=== PATIENT | female | born 1955 | race Caucasian/White ===

== ENCOUNTER 2017-08-15 08:21 | Day surgery (SDC) | payer OTHER ==
[2017-08-10 15:37] VITALS: BMI 22.7
[~2017-08-15 08:21] MED LIST: LACTATED RINGERS 1,000 ML IV SCH; LIDOCAINE 1% 20 ML VIAL (10MG/ML) FOR IV START INTRADERMA PRN
[2017-08-15 09:57] VITALS: RESP 16; TEMP 98.1
[2017-08-15] MEDS ORDERED: LIDOCAINE 1% 20 ML VIAL (10MG/ML) FOR IV START INTRADERMA ONE (10:10)
[2017-08-15] MEDS ORDERED: LIDOCAINE 1% INJ 10MG/ML (20 ML MDV) ONE (10:40)
[2017-08-15] MEDS ORDERED: PROPOFOL 10 MG/ML 20 ML VIAL IV ONE (10:40)
[2017-08-15 11:34] VITALS: BP 101/58; PULSE 67
--- NOTE | 2017-08-20 19:03 | P.PCN ---
Date of Procedure: 08/15/17 Procedure(s) Performed: Procedure: Total colonoscopy. Preoperative diagnosis: Screening for neoplasia. Postoperative diagnosis: Exam within normal limits. Preparation: HalfLytely prep. Sedation: Was provided by anesthesia. Brief clinical history: The patient is a 62-year-old female who is referred for this evaluation for screening for neoplasia age being her risk factor. She has no abdominal complaints, bleeding or anemia. No family history of colon cancer. She has history of breast cancer S/P left lumpectomy. She had no polyps on a prior colonoscopy. Procedure: With the patient on her left lateral decubitus position and after informed consent and adequate sedation, the perianal area was inspected and it did not show any fissures or fistulas. There were no masses felt on digital rectal examination. The Olympus CFQ 160L video colonoscope was then inserted in the rectum in the usual fashion and advanced to the cecum. The mucosa appeared healthy. No polyps or tumors were seen or any obvious diverticular disease or other pathology. I retroflexed the endoscope in the rectum before the endoscope was withdrawn. The patient tolerated the procedure well. Plan: The patient was reassured. She will follow-up with you as planned and I recommended repeat exam in 5 years.
== END 2017-08-15 11:35 | disposition home or self-care (01) ==
LOC: ORWHC2ENDO 08:21
DX: Z12.11 Encounter for screening for malignant neoplasm of colon (principal); F41.9 Anxiety disorder, unspecified; Z85.3 Personal history of malignant neoplasm of breast; Z90.10 Acquired absence of unspecified breast and nipple; Z79.899 Other long term (current) drug therapy
CPT/HCPCS: J2001; J2704; G0121

== ENCOUNTER → 2018-03-30 | Outpatient (CLI) | payer OTHER ==
[2018-03-30 11:49] LABS: Basophils % (A) 1 %; Eosinophils # (A) 0.1 k/uL (0-0.7); Eosinophils % (A) 1 %; HGB 14.1 gm/dL (11.4-16.0); Lymphocytes # (A) 2.2 k/uL (1.0-4.8); Lymphocytes % (A) 33 %; MCH 29.7 pg (25.0-35.0); MCHC 31.3 g/dL (31.0-37.0); Mean Platelet Volume 6.7; Monocytes # (A) 0.3 k/uL (0-1.0); Monocytes % (A) 5 %; Neutrophils # (A) 3.9 k/uL (1.3-7.7); Neutrophils % (A) 57 %; Platelet Count 288 k/uL (150-450); RBC 4.74 m/uL (3.80-5.40); RDW 12.8 % (11.5-15.5); WBC 6.8 k/uL (3.8-10.6)
[2018-03-30 12:03] LABS: Anion Gap 13 mmol/L; Blood Urea Nitrogen 13 mg/dL (7-17); Carbon Dioxide 24 mmol/L (22-30); Chloride 104 mmol/L (98-107); Glucose 84 mg/dL (74-99); Potassium 4.4 mmol/L (3.5-5.1); Sodium 141 mmol/L (137-145)
== END | disposition home or self-care (01) ==
LOC: LABPAT 10:58
PROVIDERS: ATTEND Obstetrics & Gynecology Obstetrics
DX: Z01.818 Encounter for other preprocedural examination (principal); N83.209 Unspecified ovarian cyst, unspecified side; R93.8 Abnormal findings on diagnostic imaging of other specified body structures
CPT/HCPCS: 36415; 80051; 82565; 82947; 84520; 85025; 87086; 93005

== ENCOUNTER 2018-04-09 05:48 | Day surgery (SDC) | payer OTHER ==
[2018-03-30 10:01] VITALS: BMI 22.7
[~2018-04-09 05:48] MED LIST changes: +ACETAMINOPHEN IV (For NPO) 100 ML IVPB ONE; +DEXAMETHASONE SOD PHOSPHATE 10 MG/ML 1 ML VIAL IV ONE; -LACTATED RINGERS 1,000 ML IV SCH; -LIDOCAINE 1% 20 ML VIAL (10MG/ML) FOR IV START INTRADERMA PRN; +ONDANSETRON 4 MG/2 ML VIAL IVP ONE; +ceFAZolin IN SWFI 2 GM/20 ML SYRINGE IVP ONE
[2018-04-09] MEDS: LACTATED RINGERS 1,000 ML IV SCH (06:18)
[2018-04-09] MEDS ORDERED: SCOPOLAMINE 1.5MG/72HR PATCH TRANSDERM ONE (06:44)
[2018-04-09] MEDS ORDERED: LIDOCAINE 1% INJ 10MG/ML (20 ML MDV) ONE (07:36)
[2018-04-09] MEDS ORDERED: ROCURONIUM BROMIDE 10 MG/ML 10 ML VIAL IV ONE (07:36)
[2018-04-09] MEDS ORDERED: fentaNYL (PF) 50 MCG/ML 2 ML AMP ONE (07:36)
[2018-04-09] MEDS ORDERED: GLYCOPYRROLATE 0.2 MG/ML 2 ML VIAL ONE (07:36)
[2018-04-09] MEDS ORDERED: ePHEDrine SULFATE/0.9% NACL/PF 50 MG/5 ML SYRINGE IV ONE (07:36)
[2018-04-09] MEDS ORDERED: NEOSTIGMINE 1 MG/ML 10 ML VIAL ONE (07:36)
[2018-04-09] MEDS ORDERED: PROPOFOL 10 MG/ML 20 ML VIAL IV ONE (07:36)
[2018-04-09] MEDS ORDERED: MIDAZOLAM 2 MG/2 ML VIAL ONE (07:36)
[2018-04-09] MEDS ORDERED: Acetaminophen-Codeine 300-30mg TAB PO PRN (07:43)
[2018-04-09] MEDS ORDERED: ROPIVACAINE 5 MG/ML 30 ML VIAL MISCELLANE ONE ×2 (08:20→09:00)
--- NOTE | 2018-04-09 09:08 | P.OP ---
Date of Procedure: 04/09/18 Preoperative Diagnosis: Postmenopausal bleeding, pelvic mass, ovarian cyst Postoperative Diagnosis: Same Procedure(s) Performed: Robotic-assisted vaginal hysterectomy with bilateral salpingo-oophorectomy, drainage of right ovarian cyst, diagnostic cystoscopy Anesthesia: ANA Surgeon: Lashon Collazo Interior Design Professional #1: Tamie Larios Estimated Blood Loss (ml): 20 IV fluids (ml): 700 Urine output (ml): 300 Pathology: other (Uterus cervix bilateral fallopian tubes and ovaries) Condition: stable Disposition: PACU Indications for Procedure: Large 16 cm simple-appearing cyst Operative Findings: Enlarged simple-appearing ovarian cyst, right Description of Procedure: Patient was seen in the preoperative area and informed consent is reviewed with patient. She is reminded of the risks of surgery including but not limited to infection, bleeding, damage to bladder, bowel, ureteric or other pelvic structure injury. Patient states understanding and wishes to proceed with the surgery. Patient was taken to the operating room where general anesthesia was obtained without difficulty by the anesthesia department. She was then prepped and draped in the normal sterile fashion in the dorsal lithotomy position. A Acevedo catheter was then placed under sterile technique. Weighted speculum was placed in the posterior vaginal vault the anterior lip of the cervix is visualized grasped with a single-tooth tenaculum. Endocervical canal was then dilated to be Uterine macular was advanced into the uterus as a means to manipulate the uterus throughout the procedure. At this time the balloon was insufflated with 10 mL of air endocervical cath was placed snugly against the cervix all instruments were then removed from the patient's vaginal vault. Attention was then turned the patient's abdomen with approximately 2 fingerbreadths above the umbilicus a small skin incision is made this incision a Veress needle is placed. Once the Veress needle was deemed to be in the proper position with a drop of CO2 pressure CO2 insufflation was allowed to occur. 3 L of gas were used to obtain pneumoperitoneum. At this point a 12 mm trocar and sleeve is made in the port is placed under direct visualization. The above noted findings were visualized. At this time the additional ports that the placed in the usual fashion at 10 cm lateral and 3 cm inferior to the midline port these 8 mm operative ports and are placed under direct visualization. In the left upper quadrant a 12 mm trocar and sleeve is placed under direct visualization. At this point the da Malu robot is docked in the usual fashion. The operative arms are placed in the right operative from the monopolar scissors, in the left operative arm the bipolar forceps is placed. At this time the cyst wall is transected in the suction curet is used to drain the cyst of straw-colored fluid. Attention was then turned the patient's left infundibulopelvic ligament which was grasped, coagulated distally and proximally and divided. This continued through the broad ligament toward the round which is coagulated distally and proximally and divided. The bladder flap from the left was then created using sharp and blunt dissection. The ascending branch the uterine artery was visualized regulated distally and proximally and divided. Attention then turned to the patient's right utero- ovarian ligament which was coagulated distally and proximally and divided. This continued through the broad and toward the round ligament which was coagulated distally and proximally and divided. Hemostasis was appreciated. The bladder flap was then created using sharp and blunt dissection. At this time the descending branch of the uterine artery from the right was then visualized regulated distally and proximally divided. A Ray-Yoel was placed into the abdomen and the bladder was dissected further away from the operating field. At this point the only remaining attachment was a vaginal detachment therefore colpotomy incision was made in a circumferential fashion was then delivered through the vaginal opening. The vaginal cuff was inspected and hemostasis was appreciated. The pelvis was then irrigated copiously and the vaginal cuff was closed with multiple [id number] sutures of 0 Vicryl. The robot was then undocked in the usual fashion after the instruments had been removed. The Acevedo catheter was removed and a cystoscopy was performed. The cystoscope was placed into the urethra toward the bladder bladder bubble was noted in both ureteral orifice was noted to be spilling clear yellow urine. The Acevedo catheter was then replaced after the cystoscope was removed. Attention was then turned to the patient's abdomen and skin incisions were closed with 4-0 Vicryl in a subcuticular fashion Steri-Strips and sterile dressings were applied as needed. Patient tolerated procedure well and was taken recovery room awake and in stable condition. All counts were correct 2
[2018-04-09] MEDS: HYDROmorphone 0.5 MG/0.5 ML SYRINGE IVP PRN ×2 (09:42→09:54)
[2018-04-09] MEDS: SENNOSIDES-DOCUSATE SODIUM 1 EACH TAB PO SCH ×2 (14:48→23:10)
[2018-04-09] MEDS: Acetaminophen-Codeine 300-30mg TAB PO PRN (17:06)
[2018-04-09] MEDS: IBUPROFEN 600 MG TAB PO PRN (22:04)
[2018-04-10] MEDS: Acetaminophen-Codeine 300-30mg TAB PO PRN (04:31)
[2018-04-10 06:46] VITALS: RESP 18
[2018-04-10 06:47] VITALS: BP 110/61; PULSE 67; TEMP 97.9
[2018-04-10 07:16] LABS: Basophils # (A) 0.1 k/uL (0-0.2); Basophils % (A) 0 %; Eosinophils # (A) 0.1 k/uL (0-0.7); Eosinophils % (A) 1 %; HCT 38.5 % (34.0-46.0); Lymphocytes # (A) 2.4 k/uL (1.0-4.8); Lymphocytes % (A) 20 %; MCH 31.6 pg (25.0-35.0); MCHC 33.7 g/dL (31.0-37.0); MCV 93.8 fL (80.0-100.0); Mean Platelet Volume 6.5; Monocytes # (A) 0.7 k/uL (0-1.0); Monocytes % (A) 6 %; Neutrophils # (A) 8.4 k/uL (1.3-7.7); Neutrophils % (A) 71 %; Platelet Count 269 k/uL (150-450); RBC 4.11 m/uL (3.80-5.40); WBC 11.8 k/uL (3.8-10.6)
[2018-04-10] MEDS: IBUPROFEN 600 MG TAB PO PRN (07:55)
--- NOTE | 2018-04-10 08:29 | P.DS ---
Providers Date of admission: 04/09/2018 Expected date of discharge: 04/10/18 Attending physician: Lashon Collazo Primary care physician: Stated None - Discharge Diagnosis(es) (1) Pelvic mass in female Current Visit: Yes Status: Acute (2) Ovarian cyst Current Visit: Yes Status: Acute (3) Postmenopausal bleeding Current Visit: Yes Status: Acute Hospital Course: This is a 63-year-old female that presented to the office with complaints of postmenopausal bleeding, ultrasound was obtained and a large 16 cm pelvic mass was visualized. Patient underwent Sonia testing which was negative and decided to undergo robotic-assisted vaginal hysterectomy with bilateral salpingo- oophorectomy. Patient was brought to the operating room surgery was performed without difficulty for further details on the operation please see the operative report. Patient's postoperative course has been uneventful. This morning she is ambulating and voiding without difficulty. She is tolerating a regular diet without nausea or vomiting. She states her pain is well- controlled. She denies vaginal bleeding at this time. She does wish discharge home this morning Patient Condition at Discharge: Good Plan - Discharge Summary Discharge Rx Participant: Yes New Discharge Prescriptions: No Action Zolpidem [Ambien] 10 mg PO HS PRN PRN Reason: SLEEP Risedronate Sodium [Actonel] 35 mg PO WE Citalopram Hydrobromide [CeleXA] 10 mg PO DAILY ALPRAZolam [Xanax] 0.5 mg PO DAILY PRN PRN Reason: Anxiety Triamcinolone Acetonide [Nasacort] 1 spray EA NOSTRIL DAILY Multivitamins, Thera [Multivitamin (formulary)] 1 each PO DAILY Glucosam/Phu-Msm1/C/Haider/Bosw [Glucosamine-Chondroitin Tablet] 1 each PO DAILY Calcium Carbonate/Vitamin D3 [Calcium 500-Vit D3 600 Tablet] 1 each PO DAILY Aspirin [Adult Low Dose Aspirin EC] 81 mg PO DAILY Discharge Medication List ALPRAZolam [Xanax] 0.5 mg PO DAILY PRN 08/10/17 [History] Aspirin [Adult Low Dose Aspirin EC] 81 mg PO DAILY 08/10/17 [History] Calcium Carbonate/Vitamin D3 [Calcium 500-Vit D3 600 Tablet] 1 each PO DAILY [History] Citalopram Hydrobromide [CeleXA] 10 mg PO DAILY 08/10/17 [History] Glucosam/Phu-Msm1/C/Haider/Bosw [Glucosamine-Chondroitin Tablet] 1 each PO DAILY 08/10/17 [History] Multivitamins, Thera [Multivitamin (formulary)] 1 each PO DAILY 08/10/17 [ History] Risedronate Sodium [Actonel] 35 mg PO WE 08/10/17 [History] Triamcinolone Acetonide [Nasacort] 1 spray EA NOSTRIL DAILY 08/10/17 [History] Zolpidem [Ambien] 10 mg PO HS PRN 08/10/17 [History] Follow up Appointment(s)/Referral(s): Lashon Collazo DO [Doctor of Osteopathic Medicine] - 2 Weeks Patient Instructions/Handouts: Laparoscopic Hysterectomy (DC), Laparoscopic Hysterectomy (GEN) Discharge Disposition: HOME SELF-CARE
[2018-04-10] MEDS: SENNOSIDES-DOCUSATE SODIUM 1 EACH TAB PO SCH (11:16)
== END 2018-04-10 10:30 | disposition home or self-care (01) ==
LOC: OR 05:48 → 4FBP 09:17 → OR 04-10 10:30
PROVIDERS: ATTEND Obstetrics & Gynecology Obstetrics
DX: N80.0 Endometriosis of uterus (principal); D25.9 Leiomyoma of uterus, unspecified; D27.0 Benign neoplasm of right ovary; E28.2 Polycystic ovarian syndrome; N84.0 Polyp of corpus uteri; F41.9 Anxiety disorder, unspecified; G47.00 Insomnia, unspecified; M81.0 Age-related osteoporosis without current pathological fracture; Z85.3 Personal history of malignant neoplasm of breast; Z92.21 Personal history of antineoplastic chemotherapy; Z79.82 Long term (current) use of aspirin; Z79.51 Long term (current) use of inhaled steroids; Z79.899 Other long term (current) drug therapy; Z87.891 Personal history of nicotine dependence
CPT/HCPCS: 58552; S2900; 85025; 86850; 86900; 86901; 88309

== ENCOUNTER → 2020-01-23 | Outpatient (CLI) | payer OTHER ==
--- NOTE | 2020-01-23 09:35 | BD ---
EXAMINATION TYPE: Axial Bone Density DATE OF EXAM: 01/23/2020 COMPARISON: NONE CLINICAL HISTORY: 65-year-old female M81.0, age-related osteoporosis without current pathologic fract ure. Height: 66 IN Weight: 146 LBS FRAX RISK QUESTIONS: RISK FACTORS HISTORY OF: Active: YES Postmenopausal woman: AGE 48 Take estrogen and/or progesterone medications: NOT NOW How long: TOOK FROM AGE [age] MEDICATIONS: Osteoporosis Medications: Which medication: Actonel How Lon YEARS Additional Medications: ACTONEL, CALCIUM, VIT D, Additional History: BREAST CANCER WITH CHEMO EXAM MEASUREMENTS: Bone mineral densitometry was performed using the [employer] System. Bone mineral density as measured about the Lumbar spine is: ----- L1-L4(G/cm2): 0.965 T Score Values are as follows: ----- L2: -2.0 ----- L3: -1.7 ----- L4: -1.9 ----- L1-L4: -1.8 Bone mineral density DECREASED -12.5 SINCE 02/19/2003 Bone mineral density about the R hip (g/cm2): 0.841 Bone mineral density about the L hip (g/cm2): 0.831 T Score values are as follows: -----R Neck: -1.4 -----L Neck: -1.5 -----R Total: -1.2 -----L Total: -1.5 Bone mineral density DECREASED -8.5 SINCE 02/19/2003 IMPRESSION: Osteopenia (T Score between -2.5 and -1). There is slightly increased risk of fracture and the patient may be considered for treatment. Re-Screen 2-5 years. NOTE: T-SCORE=SD OF THE YOUNG ADULT MEAN.
== END | disposition home or self-care (01) ==
LOC: RADBDWWP 07:58
PROVIDERS: ATTEND Family Medicine
DX: M85.80 Other specified disorders of bone density and structure, unspecified site (principal)
CPT/HCPCS: 77080

== ENCOUNTER 2024-11-06 13:25 | Inpatient (IN) | payer MEDICARE, BC ==
[2024-11-06] MEDS: ONDANSETRON 4 MG/2 ML VIAL IVP STA (14:24)
[2024-11-06] MEDS: KETOROLAC 15 MG/ML 1 ML VIAL IVP STA (14:24)
[2024-11-06] MEDS: PANTOPRAZOLE 40 MG/10 ML VIAL IVP STA (14:25)
[2024-11-06 14:33] LABS: Basophils # (A) 0.06 10*3/uL (0.00-0.10); Basophils % (A) 0.9 %; Eosinophils # (A) 0.02 10*3/uL (0.04-0.35); Eosinophils % (A) 0.3 %; HCT 44.9 % (37.2-46.3); HGB 15.6 g/dL (12.0-15.0); Lymphocytes # (A) 1.49 10*3/uL (0.90-5.00); Lymphocytes % (A) 23.3 %; MCH 33.6 pg (27.0-32.0); MCHC 34.7 g/dL (32.0-37.0); MCV 96.8 fL (80.0-97.0); Mean Platelet Volume 10.3 fL (9.5-12.2); Monocytes % (A) 15.6 %; Neutrophils # (A) 3.81 10*3/uL (1.80-7.70); Neutrophils % (A) 59.7 %; Platelet Count 249 10*3/uL (140-440); RBC 4.64 10*6/uL (4.10-5.20); RDW 15.2 % (11.5-14.5); WBC 6.39 10*3/uL (4.50-10.00)
[2024-11-06 14:38] LABS: INR 1.1 (<1.2); Partial Thromboplastin Time 23.3 sec (22.0-30.0); Prothrombin Time 11.9 sec (10.0-12.5)
--- NOTE | 2024-11-06 14:42 | ED ---
General Adult HPI - General Source: patient, RN notes reviewed, old records reviewed Mode of arrival: ambulatory Limitations: no limitations <Jose Vizcarra - Last Filed: 11/06/24 14:39> <Ingrid Etienne - Last Filed: 11/07/24 18:57> - General Chief complaint: Abdominal Pain Stated complaint: abd pain Time Seen by Provider: 11/06/24 14:00 - History of Present Illness Initial comments: Patient is a 69-year-old female with past medical history remarkable for breast cancer currently in remission who presents emergency department complaining of abdominal distention and discomfort. Has noticed some decreased stooling and it is atypical for her. States it is somewhat more watery but no change in color. Is still light brown. Endorses mild nausea as well but no emesis. Does have a history of a hysterectomy. No other obvious abdominal surgeries. Symptoms have been progressively worsening over the last 3 weeks. States it feels like a fluid-filled distended abdomen. Denies any chest pain or shortness of breath. Denies any history of alcohol abuse or liver issues. Has no other acute comp laints at this time. Denies fevers or urinary issues. Denies any vaginal discharge or bleeding. Presents for further evaluation. (Jose Vizcarra) - Related Data Home Medications Medication Instructions Recorded Confirmed Calcium Carbonate/Vitamin D3 1 tab PO W/LUNCH 08/10/17 11/06/24 [Calcium 500-Vit D3 15 Mcg (600 Iu)] Glucosam/Phu-Msm1/C/Haider/Bosw 1 tab PO W/LUNCH 08/10/17 11/06/24 [Glucosamine-Chondroitin Tablet] Multivitamins, Thera [Multivitamin 1 tab PO W/LUNCH 08/10/17 11/06/24 (formulary)] Risedronate Sodium [Actonel] 35 mg PO FR 08/10/17 11/06/24 Zolpidem [Ambien] 10 mg PO HS PRN 08/10/17 11/06/24 L.acidoph,Paracasei, B.lactis 1 cap PO W/LUNCH 11/06/24 11/06/24 [Probiotic] Allergies Allergy/AdvReac Type Severity Reaction Status Date / Time No Known Allergies Allergy Verified 11/06/24 16:05 Review of Systems ROS Other: All systems not noted in ROS Statement are negative. <Jose Vizcarra - Last Filed: 11/06/24 14:39> ROS Other: All systems not noted in ROS Statement are negative. <Ingrid Etienne - Last Filed: 11/07/24 18:57> ROS Statement: Those systems with pertinent positive or pertinent negative responses have been documented in the HPI. Review of Systems: CONST: Denies fever EYES: Denies blurry vision ENT: Denies nasal congestion C/V: Denies Chest pain RESP: Denies shortness of breath GI: Endorses abdominal distention/discomfort : Denies dysuria SKIN: Denies rash. MSK: Denies joint pain. NEURO: Denies headache (Jose Vizcarra) Past Medical History Past Medical History: Cancer Additional Past Medical History / Comment(s): BREAST CANCER History of Any Multi-Drug Resistant Organisms: None Reported Past Surgical History: Breast Surgery Additional Past Surgical History / Comment(s): BILAT MASTECTOMY. COLONOSCOPY- LAST ONE 07/2017. LUMPECTOMY LT SIDE. PORT INSERTED AND REMOVED. BILAT CATARACTS Past Anesthesia/Blood Transfusion Reactions: Motion Sickness Past Psychological History: Anxiety Smoking Status: Never smoker Past Alcohol Use History: Rare Past Drug Use History: None Reported - Past Family History Mother Family Medical History: No Reported History Father Family Medical History: Cancer <Jose Vizcarra - Last Filed: 11/06/24 14:39> General Exam Limitations: no limitations <Jose Vizcarra - Last Filed: 11/06/24 14:39> - General Exam Comments Initial Comments: General: Appears in mild discomfort HEAD: Normal with no signs of head trauma. EYES: EOMI ENT: Hearing grossly intact, normal oropharynx. RESPIRATORY: Clear breath sounds bilaterally. No wheezes, rales, or rhonchi. C/V: Regular rate and rhythm. S1 and S2 auscultated, no edema, peripheral pulses 2+ and intact throughout ABD: Abdomen is soft, distended. Nonfocal tenderness to palpation. No peritoneal signs. No rebound tenderness. No guarding. EXT: No obvious deformity SKIN: No rashes or lesions observed on exposed skin. NEURO: Alert and oriented x 4. (Jose Vizcarra) Course Vital Signs 11/06/24 11/06/24 11/06/24 13:35 16:18 19:49 Temperature 97.6 F 97.2 F L 97.8 F Pulse Rate 100 86 99 Respiratory 16 20 18 Rate Blood Pressure 160/85 138/73 143/78 O2 Sat by Pulse 95 97 98 Oximetry Medical Decision Making - Lab Data Result diagrams: 11/06/24 14:21 <Jose Vizcarra - Last Filed: 11/06/24 14:39> - Lab Data Result diagrams: 11/07/24 00:27 11/07/24 00:27 <Ingrid Etienne - Last Filed: 11/07/24 18:57> - Medical Decision Making Was pt. sent in by a medical professional or institution (, PA, RECEIVING DOCK CHECKER, urgent care, hospital, or shelter...) When possible be specific @ -Sent in by PCP Dr. Shannon for evaluation. Did you speak to anyone other than the patient for history (EMS, parent, family, police, friend...)? What history was obtained from this source @ -No Did you review nursing and triage notes (agree or disagree)? Why? @ -I reviewed and agree with nursing and triage notes Were old charts reviewed (outside hosp., previous admission, EMS record, old EKG, old radiological studies, urgent care reports/EKG's, shelter records)? Report findings @ -No old charts were reviewed Differential Diagnosis (chest pain, altered mental status, abdominal pain women, abdominal pain men, vaginal bleeding, weakness, fever, dyspnea, syncope, headache, dizziness, GI bleed, back pain, seizure, CVA, palpatations, mental health, musculoskeletal)? @ -Differential Abdominal Pain Women: Appendicitis, Cholecystitis, diverticulosis, ischemic bowel, pancreatitis, hepatitis, UTI, gastroenteritis, AAA, incarcerated hernia, bowel obstruction, constipation, inflammatory bowel, hepatitis, peptic ulcer disease, splenic infarction, perforated viscus, vulvitis, ovarian torsion, PID, kidney stone, placenta abruption, this is not meant to be an all-inclusive list EKG interpreted by me (3pts min.). @ -None done X-rays interpreted by me (1pt min.). @ -None done CT interpreted by me (1pt min.). @ -Pending U/S interpreted by me (1pt. min.). @ -None done What testing was considered but not performed or refused? (CT, X-rays, U/S, labs)? Why? @ -None What meds were considered but not given or refused? Why? @ -None Did you discuss the management of the patient with other professionals (professionals i.e. Dr., PA, RECEIVING DOCK CHECKER, lab, RT, psych nurse, executive secretary social welfare, press tender short goods, teacher, targeting acquisition officer, disease case manager)? Give summary @ -No Was smoking cessation discussed for >3mins.? @ -No Was critical care preformed (if so, how long)? @ -No Were there social determinants of health that impacted care today? How? (Homelessness, low income, unemployed, alcoholism, drug addiction, transport ation, low edu. Level, literacy, decrease access to med. care, group home, rehab)? @ -No Was there de-escalation of care discussed even if they declined (Discuss DNR or withdrawal of care, Hospice)? DNR status @ -No What co-morbidities impacted this encounter? (DM, HTN, Smoking, COPD, CAD, Cancer, CVA, ARF, Chemo, Hep., AIDS, mental health diagnosis, sleep apnea, morbid obesity)? @ -None Was patient admitted / discharged? Hospital course, mention meds given and route, prescriptions, significant lab abnormalities, going to OR and other pertinent info. @ -Patient presents with 3 weeks of worsening abdominal pain and distention and some decrease stooling over that period of time. Sent in by her PCP. Vitals are within acceptable limits. Patient will be administered IV Zofran as well as Toradol. Considered IV fluids however unknown if this is fluid distention versus constipation or intestinal distention. We will monitor the patient but obtain abdominal workup as well as CT abdomen pelvis. Patient was in agreement this plan. At this time is the end of my shift. [facility], Dr. Etienne pending results of workup. Undiagnosed new problem with uncertain prognosis? @ -No Drug Therapy requiring intensive monitoring for toxicity (Heparin, Nitro, Insulin, Cardizem)? @ -No Were any procedures done? @ -No (Jose Vizcarra) Was patient admitted / discharged? Hospital course, mention meds given and route , prescriptions, significant lab abnormalities, going to OR and other pertinent info. Admission-patient signed out to myself pending completion of labs and imaging. CT was significant for a small left pleural effusion with mild adjacent compressive atelectasis, cirrhotic liver, multiple innumerable hepatic metastic lesions, multiple small scattered sclerotic osseous metastases without pathologic fracture and marked ascites. I did personally review CT scan, I agree with radiologist interpretation, multiple liver lesions noted as well as ascites. I updated patient today's findings and discussed with her concern that, given her history of breast cancer there may be recurrence of cancer. Giv en patient's significant symptoms and imaging findings plan for admission for further evaluation and symptom control. Patient agreeable with plan of care. Case was discussed with Dr. Lazar who kindly excepted patient for admission. Undiagnosed new problem with uncertain prognosis? @ -No Drug Therapy requiring intensive monitoring for toxicity (Heparin, Nitro, Insulin, Cardizem)? @ -No Were any procedures done? @ -No Diagnosis/symptom? @Ascites, abdominal pain, metastatic liver lesions, metastatic osseous lesions Acute, or Chronic, or Acute on Chronic? @Acute Uncomplicated (without systemic symptoms) or Complicated (systemic symptoms)? @Complicated Side effects of treatment? @ -No Exacerbation, Progression, or Severe Exacerbation? @ -No Poses a threat to life or bodily function? How? (Chest pain, USA, CA, pneumonia, PE, COPD, DKA, ARF, appy, cholecystitis, CVA, Diverticulitis, Homicidal, Suicidal, threat to staff... and all critical care pts) @ -Yes (,Ingrid) - Lab Data Lab Results 11/06/24 11/06/24 11/06/24 Range/Units 14:21 14:21 14:21 WBC 6.39 (4.50-10.00) 10*3/uL RBC 4.64 (4.10-5.20) 10*6/uL Hgb 15.6 H (12.0-15.0) g/dL Hct 44.9 (37.2-46.3) % MCV 96.8 (80.0-97.0) fL MCH 33.6 H (27.0-32.0) pg MCHC 34.7 (32.0-37.0) g/dL RDW (11.5-14.5) % Plt Count 249 (140-440) 10*3/uL MPV 10.3 (9.5-12.2) fL Immature Gran % (Auto) 0.2 % Neutrophils % 59.7 % Lymphocytes % 23.3 % Monocytes % 15.6 % Eosinophils % 0.3 % Basophils % 0.9 % Immature Gran # 0.01 (0.00-0.04) 10*3/uL Neutrophils # 3.81 (1.80-7.70) 10*3/uL Lymphocytes # 1.49 (0.90-5.00) 10*3/uL Monocytes # 1.00 (0.20-1.00) 10*3/uL Eosinophils # 0.02 L (0.04-0.35) 10*3/uL Basophils # 0.06 (0.00-0.10) 10*3/uL PT 11.9 (10.0-12.5) sec INR 1.1 (<1.2) APTT 23.3 (22.0-30.0) sec Sodium 134 L (137-145) mmol/L Potassium 4.7 (3.5-5.1) mmol/L Chloride 100 (98-107) mmol/L Carbon Dioxide 23 (22-30) mmol/L Anion Gap 11 mmol/L BUN 12 (7-17) mg/dL Creatinine 0.54 (0.52-1.04) mg/dL Est GFR (CKD-EPI)AfAm >90 (>60 ml/min/1.73 sqM) Est GFR (CKD-EPI)NonAf >90 (>60 ml/min/1.73 sqM) Glucose 89 (74-99) mg/dL Lactic Ac Sepsis Rflx Plasma Lactic Acid Sher (0.7-2.0) mmol/L Calcium 9.6 (8.4-10.2) mg/dL Total Bilirubin 2.5 H (0.2-1.3) mg/dL AST 286 H (14-36) U/L ALT 103 H (4-34) U/L Alkaline Phosphatase 454 H (38-126) U/L Total Protein 7.1 (6.3-8.2) g/dL Albumin 3.9 (3.5-5.0) g/dL Globulin g/dL Albumin/Globulin Ratio Amylase 50 (30-110) U/L Lipase 134 (23-300) U/L Urine Color Urine Appearance (Clear) Urine pH (5.0-8.0) Ur Specific [place] (1.001-1.035) Urine Protein (Negative) Urine Glucose (UA) (Negative) Urine Ketones (Negative) Urine Blood (Negative) Urine Nitrite (Negative) Urine Bilirubin (Negative) Urine Urobilinogen (<2.0) mg/dL Ur Leukocyte Esterase (Negative) 11/06/24 11/06/24 11/06/24 Range/Units 14:21 14:49 16:14 WBC (4.50-10.00) 10*3/uL RBC (4.10-5.20) 10*6/uL Hgb (12.0-15.0) g/dL Hct (37.2-46.3) % MCV (80.0-97.0) fL MCH (27.0-32.0) pg MCHC (32.0-37.0) g/dL RDW (11.5-14.5) % Plt Count (140-440) 10*3/uL MPV (9.5-12.2) fL Immature Gran % (Auto) % Neutrophils % % Lymphocytes % % Monocytes % % Eosinophils % % Basophils % % Immature Gran # (0.00-0.04) 10*3/uL Neutrophils # (1.80-7.70) 10*3/uL Lymphocytes # (0.90-5.00) 10*3/uL Monocytes # (0.20-1.00) 10*3/uL Eosinophils # (0.04-0.35) 10*3/uL Basophils # (0.00-0.10) 10*3/uL PT (10.0-12.5) sec INR (<1.2) APTT (22.0-30.0) sec Sodium (137-145) mmol/L Potassium (3.5-5.1) mmol/L Chloride (98-107) mmol/L Carbon Dioxide (22-30) mmol/L Anion Gap mmol/L BUN (7-17) mg/dL Creatinine (0.52-1.04) mg/dL Est GFR (CKD-EPI)AfAm (>60 ml/min/1.73 sqM) Est GFR (CKD-EPI)NonAf (>60 ml/min/1.73 sqM) Glucose (74-99) mg/dL Lactic Ac Sepsis Rflx Y Plasma Lactic Acid Sher 2.4 H* (0.7-2.0) mmol/L Calcium (8.4-10.2) mg/dL Total Bilirubin (0.2-1.3) mg/dL AST (14-36) U/L ALT (4-34) U/L Alkaline Phosphatase (38-126) U/L Total Protein (6.3-8.2) g/dL Albumin (3.5-5.0) g/dL Globulin g/dL Albumin/Globulin Ratio Amylase (30-110) U/L Lipase (23-300) U/L Urine Color Yellow Urine Appearance Clear (Clear) Urine pH 5.5 (5.0-8.0) Ur Specific [place] 1.033 (1.001-1.035) Urine Protein Negative (Negative) Urine Glucose (UA) Negative (Negative) Urine Ketones 1+ H (Negative) Urine Blood Negative (Negative) Urine Nitrite Negative (Negative) Urine Bilirubin Negative (Negative) Urine Urobilinogen <2.0 (<2.0) mg/dL Ur Leukocyte Esterase Negative (Negative) 11/06/24 11/06/24 11/06/24 Range/Units 18:05 18:35 21:23 WBC (4.50-10.00) 10*3/uL RBC (4.10-5.20) 10*6/uL Hgb (12.0-15.0) g/dL Hct (37.2-46.3) % MCV (80.0-97.0) fL MCH (27.0-32.0) pg MCHC (32.0-37.0) g/dL RDW (11.5-14.5) % Plt Count (140-440) 10*3/uL MPV (9.5-12.2) fL Immature Gran % (Auto) % Neutrophils % % Lymphocytes % % Monocytes % % Eosinophils % % Basophils % % Immature Gran # (0.00-0.04) 10*3/uL Neutrophils # (1.80-7.70) 10*3/uL Lymphocytes # (0.90-5.00) 10*3/uL Monocytes # (0.20-1.00) 10*3/uL Eosinophils # (0.04-0.35) 10*3/uL Basophils # (0.00-0.10) 10*3/uL PT (10.0-12.5) sec INR (<1.2) APTT (22.0-30.0) sec Sodium (137-145) mmol/L Potassium (3.5-5.1) mmol/L Chloride (98-107) mmol/L Carbon Dioxide (22-30) mmol/L Anion Gap mmol/L BUN (7-17) mg/dL Creatinine (0.52-1.04) mg/dL Est GFR (CKD-EPI)AfAm (>60 ml/min/1.73 sqM) Est GFR (CKD-EPI)NonAf (>60 ml/min/1.73 sqM) Glucose (74-99) mg/dL Lactic Ac Sepsis Rflx Y Plasma Lactic Acid Sher 2.3 H* 2.3 H* (0.7-2.0) mmol/L Calcium (8.4-10.2) mg/dL Total Bilirubin (0.2-1.3) mg/dL AST (14-36) U/L ALT (4-34) U/L Alkaline Phosphatase (38-126) U/L Total Protein (6.3-8.2) g/dL Albumin (3.5-5.0) g/dL Globulin g/dL Albumin/Globulin Ratio Amylase (30-110) U/L Lipase (23-300) U/L Urine Color Urine Appearance (Clear) Urine pH (5.0-8.0) Ur Specific [place] (1.001-1.035) Urine Protein (Negative) Urine Glucose (UA) (Negative) Urine Ketones (Negative) Urine Blood (Negative) Urine Nitrite (Negative) Urine Bilirubin (Negative) Urine Urobilinogen (<2.0) mg/dL Ur Leukocyte Esterase (Negative) 11/06/24 11/07/24 11/07/24 Range/Units 21:56 00:22 00:27 WBC 6.04 (4.50-10.00) 10*3/uL RBC 4.00 L (4.10-5.20) 10*6/uL Hgb 13.7 (12.0-15.0) g/dL Hct 40.4 (37.2-46.3) % MCV 101.0 H (80.0-97.0) fL MCH 34.3 H (27.0-32.0) pg MCHC 33.9 (32.0-37.0) g/dL RDW 15.7 H (11.5-14.5) % Plt Count 239 (140-440) 10*3/uL MPV 10.3 (9.5-12.2) fL Immature Gran % (Auto) % Neutrophils % 56.6 % Lymphocytes % 27.6 % Monocytes % 14.1 % Eosinophils % 0.7 % Basophils % 1.0 % Immature Gran # 0.00 (0.00-0.04) 10*3/uL Neutrophils # 3.42 (1.80-7.70) 10*3/uL Lymphocytes # 1.67 (0.90-5.00) 10*3/uL Monocytes # 0.85 (0.20-1.00) 10*3/uL Eosinophils # 0.04 (0.04-0.35) 10*3/uL Basophils # 0.06 (0.00-0.10) 10*3/uL PT (10.0-12.5) sec INR (<1.2) APTT (22.0-30.0) sec Sodium (137-145) mmol/L Potassium (3.5-5.1) mmol/L Chloride (98-107) mmol/L Carbon Dioxide (22-30) mmol/L Anion Gap mmol/L BUN (7-17) mg/dL Creatinine (0.52-1.04) mg/dL Est GFR (CKD-EPI)AfAm (>60 ml/min/1.73 sqM) Est GFR (CKD-EPI)NonAf (>60 ml/min/1.73 sqM) Glucose (74-99) mg/dL Lactic Ac Sepsis Rflx Y Plasma Lactic Acid Sher 2.2 H* (0.7-2.0) mmol/L Calcium (8.4-10.2) mg/dL Total Bilirubin (0.2-1.3) mg/dL AST (14-36) U/L ALT (4-34) U/L Alkaline Phosphatase (38-126) U/L Total Protein (6.3-8.2) g/dL Albumin (3.5-5.0) g/dL Globulin g/dL Albumin/Globulin Ratio Amylase (30-110) U/L Lipase (23-300) U/L Urine Color Urine Appearance (Clear) Urine pH (5.0-8.0) Ur Specific [place] (1.001-1.035) Urine Protein (Negative) Urine Glucose (UA) (Negative) Urine Ketones (Negative) Urine Blood (Negative) Urine Nitrite (Negative) Urine Bilirubin (Negative) Urine Urobilinogen (<2.0) mg/dL Ur Leukocyte Esterase (Negative) 11/07/24 11/07/24 11/07/24 Range/Units 00:27 01:08 03:59 WBC (4.50-10.00) 10*3/uL RBC (4.10-5.20) 10*6/uL Hgb (12.0-15.0) g/dL Hct (37.2-46.3) % MCV (80.0-97.0) fL MCH (27.0-32.0) pg MCHC (32.0-37.0) g/dL RDW (11.5-14.5) % Plt Count (140-440) 10*3/uL MPV (9.5-12.2) fL Immature Gran % (Auto) % Neutrophils % % Lymphocytes % % Monocytes % % Eosinophils % % Basophils % % Immature Gran # (0.00-0.04) 10*3/uL Neutrophils # (1.80-7.70) 10*3/uL Lymphocytes # (0.90-5.00) 10*3/uL Monocytes # (0.20-1.00) 10*3/uL Eosinophils # (0.04-0.35) 10*3/uL Basophils # (0.00-0.10) 10*3/uL PT (10.0-12.5) sec INR (<1.2) APTT (22.0-30.0) sec Sodium 134 L (137-145) mmol/L Potassium 3.7 (3.5-5.1) mmol/L Chloride 102 (98-107) mmol/L Carbon Dioxide 24 (22-30) mmol/L Anion Gap 8 mmol/L BUN 13 (7-17) mg/dL Creatinine 0.75 (0.52-1.04) mg/dL Est GFR (CKD-EPI)AfAm >90 (>60 ml/min/1.73 sqM) Est GFR (CKD-EPI)NonAf 82 (>60 ml/min/1.73 sqM) Glucose 118 H (74-99) mg/dL Lactic Ac Sepsis Rflx Y Plasma Lactic Acid Sher 1.9 (0.7-2.0) mmol/L Calcium 8.9 (8.4-10.2) mg/dL Total Bilirubin 2.0 H (0.2-1.3) mg/dL AST 217 H (14-36) U/L ALT 79 H (4-34) U/L Alkaline Phosphatase 321 H (38-126) U/L Total Protein 5.5 L (6.3-8.2) g/dL Albumin 2.8 L (3.5-5.0) g/dL Globulin 2.7 g/dL Albumin/Globulin Ratio 1.0 Amylase (30-110) U/L Lipase (23-300) U/L Urine Color Urine Appearance (Clear) Urine pH (5.0-8.0) Ur Specific [place] (1.001-1.035) Urine Protein (Negative) Urine Glucose (UA) (Negative) Urine Ketones (Negative) Urine Blood (Negative) Urine Nitrite (Negative) Urine Bilirubin (Negative) Urine Urobilinogen (<2.0) mg/dL Ur Leukocyte Esterase (Negative) Disposition <Jose Vizcarra - Last Filed: 11/06/24 14:39> <Ingrid Etienne - Last Filed: 11/07/24 18:57> Clinical Impression: Metastasis to liver, Ascites Disposition: ADMITTED IP TO THIS HOSP Condition: Stable
[2024-11-06 14:44] LABS: ALT 103 U/L (4-34); African American GFR (CKD) >90 (>60 ml/min/1.73 sqM); Amylase 50 U/L (30-110); Anion Gap 11 mmol/L; Blood Urea Nitrogen 12 mg/dL (7-17); Calcium 9.6 mg/dL (8.4-10.2); Carbon Dioxide 23 mmol/L (22-30); Chloride 100 mmol/L (98-107); Glucose 89 mg/dL (74-99); Lipase 134 U/L (23-300); Non-African American GFR(CKD) >90 (>60 ml/min/1.73 sqM); Sodium 134 mmol/L (137-145)
[2024-11-06 14:48] LABS: AST 286 U/L (14-36); Albumin 3.9 g/dL (3.5-5.0); Alkaline Phosphatase 454 U/L (38-126); Potassium 4.7 mmol/L (3.5-5.1); Total Bilirubin 2.5 mg/dL (0.2-1.3); Total Protein 7.1 g/dL (6.3-8.2)
--- NOTE | 2024-11-06 16:03 | CT ---
EXAMINATION TYPE: CT abdomen pelvis w con DATE OF EXAM: 11/06/2024 COMPARISON: None CLINICAL INDICATION: Female, 69 years old with history of abdominal pain, general with distention; PH H, abdominal pain, general with distention TECHNIQUE: Performed without Oral Contrast and with IV Contrast, patient injected with 100ml mL of Isovue 300. CT DLP: 832.[address] CTDI: mGy Automated exposure control for dose reduction was used. FINDINGS: There is a small left pleural effusion with mild adjacent left lower lobe parenchymal density possibl y compressive atelectasis. There is surgical absence of the gallbladder. There is no biliary ductal dilatation. The liver margin is markedly nodular consistent with cirrhosis. There are multiple innumerable hypode nsities scattered throughout both lobes of the liver the largest of which is in the liver dome and me asures approximately 3.4 cm. Findings are consistent with metastatic disease. There is no focal mass or organomegaly involving the pancreas, spleen or adrenal glands There is no solid renal mass or hydronephrosis and there is homogeneous contrast enhancement of the r enal parenchyma.. The caliber the abdominal aorta is normal is no retroperitoneal adenopathy or hemorrhage. The bowel loops are normal in caliber and there is no evidence of dilatation or obstruction. No infla mmatory changes are identified in the bowel wall or mesentery. There is marked ascites. There is no free air. No pelvic mass, free fluid, abscess or adenopathy. There is surgical absence of the uterus. There is a grade 1 anterolisthesis of L4 and L5. [id number] degenerative disease at L3-4 and L4 -5. There are multiple scattered focal small osseous lesions including the bilateral iliac bones, left hi p, T10, T12, L2, L3, and L5 vertebral segments. There are no pathological fractures IMPRESSION: 1. Small left pleural effusion mild adjacent compressive atelectasis. 2. Cirrhotic liver. 3. Multiple innumerable hepatic metastatic lesions. 4. multiple small scattered sclerotic osseous metastasis without pathologic fracture. 5. Marked ascites. [facility], , 11/06/2024 4:01 PM
[2024-11-06] MEDS: SODIUM CHLORIDE 0.9% 500 ML 500 ML IV ONE (16:17)
[2024-11-06 16:33] LABS: Appearance,Urine Clear (Clear); Bilirubin,Urine Negative (Negative); Blood,Urine Negative (Negative); Color,Urine Yellow; Glucose,Urine (UA) Negative (Negative); Ketones,Urine 1+ (Negative); Leukocyte Esterase,Urine Negative (Negative); Nitrite,Urine Negative (Negative); PH, Urine 5.5 (5.0-8.0); Protein,Urine Negative (Negative); Specific Gravity,Urine 1.033 (1.001-1.035); Urobilinogen,Urine <2.0 mg/dL (<2.0)
--- NOTE | 2024-11-06 17:44 | P.HPIM ---
History of Present Illness H&P Date: 11/06/24 Chief Complaint: abdominal distention Patient is a 69-year-old female with a past medical history of breast cancer That was treated with bilateral mastectomy 21 years ago at [facility] and also history of hysterectomy presents to the ED with abdominal pain and distention. Patient states that the distention has been worsening over the past 3 to 4 weeks. Symptoms to abdominal bloating. She saw her PCP last week who also treated this abdominal bloating. Patient found to have lactic acid 2.4, total bilirubin 2.5, AST 286, ALT 103, phosphatase 454. Abdominal CT scan showed cirrhotic liver with multiple innumerable hepatic metastatic lesions and multiple small scattered sclerotic osseous metastasis without pathologic fracture and marked ascites. Patient was admitted to the medicine service so that she could be evaluated by hematology and interventional radiology. ROS: 10 ROS reviewed and are negative except as noted in HPI Physical exam General: [Alert and oriented, well nourished, no acute distress]. Eye: [PERRL, EOMI, normal conjunctiva]. HENT: [Normocephalic, clear tympanic membranes, normal hearing, moist oral mucosa, + scleral icterus, no sinus tenderness]. Neck: [Supple, non-tender, no carotid bruits, no JVD, no lymphadenopathy]. Lungs: [Clear to auscultation and percussion, non-labored respiration]. Heart: [Normal rate, regular rhythm, no murmur, +1 pitting edema in bilateral lower extremities]. Abdomen: [Distended]. Musculoskeletal: [Normal range of motion and strength, no tenderness or swelling]. Neurologic: [Awake, alert, and oriented X3, CN II-XII intact]. Psychiatric: [Cooperative, appropriate mood and affect]. A/P Liver metastasis Liver cirrhosis Osseous metastasis Transaminitis and hyperbilirubinemia Ascites Will check alpha-fetoprotein IR consult for paracentesis and biopsy of the liver or bone Oncology consult Mildly elevated lactic acid likely due to liver cirrhosis Unlikely from sepsis as there is no signs or symptoms of infection History of breast cancer with bilateral mastectomy and hysterectomy Patient states that breast cancer is in remission for 21 years. Insomnia Continue with Ambien Osteoporosis Continue with home med DVT ppx: SC heparin Past Medical History Past Medical History: Cancer Additional Past Medical History / Comment(s): BREAST CANCER History of Any Multi-Drug Resistant Organisms: None Reported Past Surgical History: Breast Surgery Additional Past Surgical History / Comment(s): BILAT MASTECTOMY. COLONOSCOPY- LAST ONE 07/2017. LUMPECTOMY LT SIDE. PORT INSERTED AND REMOVED. BILAT CATARACTS Past Anesthesia/Blood Transfusion Reactions: Motion Sickness Past Psychological History: Anxiety Smoking Status: Never smoker Past Alcohol Use History: Rare Past Drug Use History: None Reported - Past Family History Mother Family Medical History: No Reported History Father Family Medical History: Cancer Medications and Allergies Home Medications Medication Instructions Recorded Confirmed Type Calcium Carbonate/Vitamin D3 1 tab PO W/LUNCH 08/10/17 11/06/24 History [Calcium 500-Vit D3 600 Tablet] Glucosam/Phu-Msm1/C/Haider/Bosw 1 tab PO W/LUNCH 08/10/17 11/06/24 History [Glucosamine-Chondroitin Tablet] Multivitamins, Thera [Multivitamin 1 tab PO W/LUNCH 08/10/17 11/06/24 History (formulary)] Risedronate Sodium [Actonel] 35 mg PO FR 08/10/17 11/06/24 History Zolpidem [Ambien] 10 mg PO HS PRN 08/10/17 11/06/24 History L.acidoph,Paracasei, B.lactis 1 cap PO W/LUNCH 11/06/24 11/06/24 History [Probiotic] Allergies Allergy/AdvReac Type Severity Reaction Status Date / Time No Known Allergies Allergy Verified 11/06/24 16:05 Physical Exam Osteopathic Statement: *. No significant issues noted on an osteopathic structural exam other than those noted in the History and Physical/Consult. Vitals: Vital Signs Temp Pulse Resp BP Pulse Ox 11/06/24 16:18 97.2 F L 86 20 138/73 97 11/06/24 13:35 97.6 F 100 16 160/85 95 Intake and Output 11/06/24 11/06/24 11/06/24 06:59 14:59 22:59 Other: Weight 71.668 kg Results CBC & Chem 7: 11/06/24 14:21 11/06/24 14:21 Labs: Abnormal Lab Results - Last 24 Hours (Table) 11/06/24 11/06/24 11/06/24 Range/Units 14:21 14:21 14:21 Hgb 15.6 H (12.0-15.0) g/dL MCH 33.6 H (27.0-32.0) pg Eosinophils # 0.02 L (0.04-0.35) 10*3/uL Sodium 134 L (137-145) mmol/L Plasma Lactic Acid Sher 2.4 H* (0.7-2.0) mmol/L Total Bilirubin 2.5 H (0.2-1.3) mg/dL AST 286 H (14-36) U/L ALT 103 H (4-34) U/L Alkaline Phosphatase 454 H (38-126) U/L Urine Ketones (Negative) 11/06/24 Range/Units 16:14 Hgb (12.0-15.0) g/dL MCH (27.0-32.0) pg Eosinophils # (0.04-0.35) 10*3/uL Sodium (137-145) mmol/L Plasma Lactic Acid Sher (0.7-2.0) mmol/L Total Bilirubin (0.2-1.3) mg/dL AST (14-36) U/L ALT (4-34) U/L Alkaline Phosphatase (38-126) U/L Urine Ketones 1+ H (Negative)
[2024-11-06] MEDS ORDERED: NALOXONE 0.4 MG/ML 1 ML VIAL IV PRN (18:14)
--- NOTE | 2024-11-06 18:21 | US ---
EXAMINATION TYPE: US gallbladder DATE OF EXAM: 11/06/2024 COMPARISON: CT same day CLINICAL INDICATION: Female, 69 years old with history of abd pain; patient states abd discomfort. We ight gain 10 lbs in week. Hx breast cancer. Patient states she still has her gallbladder TECHNIQUE: Grayscale and color Doppler imaging of the right upper quadrant was performed. 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 Heterogeneous with multiple mass like areas seen within. Ascites see n. Gallbladder: wnl as best seen Evidence for sonographic Jasmine's sign: no CBD: mildly dilated Right Kidney: wnl Coarse nodular appearance of the liver with multiple heterogenous regions identified. The visualized portions of the pancreas unremarkable. The body and tail is obscured by overlying bowel gas. Gallblad katharine demonstrates no wall thickening, shadowing calculi or surrounding fluid. Negative sonographic Mur phy's sign. The gallbladder demonstrated increased attenuation on concurrent CT. Perihepatic ascites. Common bile duct is mildly dilated. Right kidney demonstrates no solid mass, hydronephrosis or shado wing calculus. IMPRESSION: 1. No ultrasound evidence for acute cholecystitis. 2. Mildly dilated common bile duct measuring up to 9 mm. Correlate with biliary labs. Consider furthe r evaluation with MRCP/ERCP. 3. Redemonstration of hepatic cirrhosis with multiple heterogenous masses as seen on concurrent CT. T his may represent metastasis and/or hepatocellular carcinoma. 4. Perihepatic ascites. [facility], , 11/06/2024 6:18 PM
[2024-11-06] MEDS: HEPARIN SODIUM,PORCINE 5,000 UNIT/ML 1 ML VIAL SQ SCH (21:57)
[2024-11-06] MEDS: ZOLPIDEM 5 MG TAB PO PRN (22:21)
[2024-11-06] MEDS: KETOROLAC 15 MG/ML 1 ML VIAL IVP PRN (22:31)
[2024-11-07 00:54] LABS: Basophils # (A) 0.06 10*3/uL (0.00-0.10); Eosinophils # (A) 0.04 10*3/uL (0.04-0.35); Eosinophils % (A) 0.7 %; HCT 40.4 % (37.2-46.3); HGB 13.7 g/dL (12.0-15.0); Lymphocytes # (A) 1.67 10*3/uL (0.90-5.00); Lymphocytes % (A) 27.6 %; MCH 34.3 pg (27.0-32.0); MCHC 33.9 g/dL (32.0-37.0); Mean Platelet Volume 10.3 fL (9.5-12.2); Monocytes # (A) 0.85 10*3/uL (0.20-1.00); Monocytes % (A) 14.1 %; Neutrophils # (A) 3.42 10*3/uL (1.80-7.70); Neutrophils % (A) 56.6 %; Platelet Count 239 10*3/uL (140-440); RDW 15.7 % (11.5-14.5); WBC 6.04 10*3/uL (4.50-10.00)
[2024-11-07 01:04] LABS: ALT 79 U/L (4-34); AST 217 U/L (14-36); African American GFR (CKD) >90 (>60 ml/min/1.73 sqM); Albumin 2.8 g/dL (3.5-5.0); Alkaline Phosphatase 321 U/L (38-126); Anion Gap 8 mmol/L; Blood Urea Nitrogen 13 mg/dL (7-17); Calcium 8.9 mg/dL (8.4-10.2); Carbon Dioxide 24 mmol/L (22-30); Chloride 102 mmol/L (98-107); Globulin 2.7 g/dL; Glucose 118 mg/dL (74-99); Non-African American GFR(CKD) 82 (>60 ml/min/1.73 sqM); Potassium 3.7 mmol/L (3.5-5.1); Sodium 134 mmol/L (137-145); Total Protein 5.5 g/dL (6.3-8.2)
--- NOTE | 2024-11-07 12:32 | US ---
EXAMINATION TYPE: US discontinued paracentesis DATE OF EXAM: 11/07/2024 11:29 AM COMPARISON: prior paracentesis. CLINICAL INDICATION:Female, 69 years old with history of Ascites; , ascites PROCEDURE: Preprocedural ultrasound reveals an inadequate amount of ascites for drainage at this time . IMPRESSION: Discontinued paracentesis. [facility], Workstation: 3, 11/07/2024 12:30 PM
--- NOTE | 2024-11-07 12:41 | P.PN ---
Subjective Subjective Patient seen this morning. She has no acute complaints. She wants to go home. I discussed with hematology who said okay to go after paracentesis. Unfortunately IR was not successful in getting fluid from the paracentesis. Discussed with the patient who is now amenable to staying for liver biposy. Discussed with IR who said cannot get liver biopsy today as patient got IV Toradol. ROS: 10 ROS reviewed and are negative except as noted in HPI Physical exam General: [Alert and oriented, well nourished, no acute distress]. Eye: [PERRL, EOMI, normal conjunctiva]. HENT: [Normocephalic, clear tympanic membranes, normal hearing, moist oral mucosa, + scleral icterus, no sinus tenderness]. Neck: [Supple, non-tender, no carotid bruits, no JVD, no lymphadenopathy]. Lungs: [Clear to auscultation and percussion, non-labored respiration]. Heart: [Normal rate, regular rhythm, no murmur, +1 pitting edema in bilateral lower extremities]. Abdomen: [Distended]. Musculoskeletal: [Normal range of motion and strength, no tenderness or swe lling]. Neurologic: [Awake, alert, and oriented X3, CN II-XII intact]. Psychiatric: [Cooperative, appropriate mood and affect]. A/P Liver metastasis Liver cirrhosis Osseous metastasis Transaminitis and hyperbilirubinemia Ascites Hematology on board Per IR not enough fluid for paracentesis Patient scheduled for liver biopsy tomorrow. Hold subcu heparin and IV Toradol. Pathology following Mildly elevated lactic acid likely due to liver cirrhosis Unlikely from sepsis as there is no signs or symptoms of infection History of breast cancer with bilateral mastectomy and hysterectomy Patient states that breast cancer is in remission for 21 years. Insomnia Continue with Ambien Osteoporosis Continue with home med DVT ppx: Holding anticoagulation for liver biopsy plan Patient can be discharged tomorrow after her liver biopsy Objective - Vital Signs Vital signs: Vital Signs Temp 97.8 F 11/07/24 07:50 Pulse 96 11/07/24 11:05 Resp 16 11/07/24 11:05 BP 134/77 11/07/24 11:05 Pulse Ox 94 L 11/07/24 11:05 FiO2 Intake & Output 11/06/24 11/07/24 11/07/24 18:59 06:59 18:59 Intake Total 780 Balance 780 Weight 71.668 kg 71.668 kg Intake: Oral 780 Other: Voiding Method Toilet Toilet # Voids 3 2 - Labs CBC & Chem 7: 11/07/24 00:27 11/07/24 00:27 Labs: Abnormal Lab Results - Last 24 Hours (Table) 11/06/24 11/06/24 11/06/24 Range/Units 14:21 14:21 14:21 RBC (4.10-5.20) 10*6/uL Hgb 15.6 H (12.0-15.0) g/dL MCV (80.0-97.0) fL MCH 33.6 H (27.0-32.0) pg RDW (11.5-14.5) % Eosinophils # 0.02 L (0.04-0.35) 10*3/uL Sodium 134 L (137-145) mmol/L Glucose (74-99) mg/dL Plasma Lactic Acid Sher 2.4 H* (0.7-2.0) mmol/L Total Bilirubin 2.5 H (0.2-1.3) mg/dL AST 286 H (14-36) U/L ALT 103 H (4-34) U/L Alkaline Phosphatase 454 H (38-126) U/L Total Protein (6.3-8.2) g/dL Albumin (3.5-5.0) g/dL Urine Ketones (Negative) 11/06/24 11/06/24 11/06/24 Range/Units 16:14 18:05 21:23 RBC (4.10-5.20) 10*6/uL Hgb (12.0-15.0) g/dL MCV (80.0-97.0) fL MCH (27.0-32.0) pg RDW (11.5-14.5) % Eosinophils # (0.04-0.35) 10*3/uL Sodium (137-145) mmol/L Glucose (74-99) mg/dL Plasma Lactic Acid Sher 2.3 H* 2.3 H* (0.7-2.0) mmol/L Total Bilirubin (0.2-1.3) mg/dL AST (14-36) U/L ALT (4-34) U/L Alkaline Phosphatase (38-126) U/L Total Protein (6.3-8.2) g/dL Albumin (3.5-5.0) g/dL Urine Ketones 1+ H (Negative) 11/07/24 11/07/24 11/07/24 Range/Units 00:22 00:27 00:27 RBC 4.00 L (4.10-5.20) 10*6/uL Hgb (12.0-15.0) g/dL MCV 101.0 H (80.0-97.0) fL MCH 34.3 H (27.0-32.0) pg RDW 15.7 H (11.5-14.5) % Eosinophils # (0.04-0.35) 10*3/uL Sodium 134 L (137-145) mmol/L Glucose 118 H (74-99) mg/dL Plasma Lactic Acid Sher 2.2 H* (0.7-2.0) mmol/L Total Bilirubin 2.0 H (0.2-1.3) mg/dL AST 217 H (14-36) U/L ALT 79 H (4-34) U/L Alkaline Phosphatase 321 H (38-126) U/L Total Protein 5.5 L (6.3-8.2) g/dL Albumin 2.8 L (3.5-5.0) g/dL Urine Ketones (Negative)
--- NOTE | 2024-11-07 13:37 | P.CONS ---
History of Present Illness - Reason for Consult Consult date: 11/07/24 liver, bone lesions Requesting physician: Melissa Cali - Chief Complaint prog abd distension - History of Present Illness Ms. Rosenthal is a 69-year-old female we have been asked to see because of multiple liver and bone lesions. She has a remote Hx of breast carcinoma back in 2002, treated with mastectomy, no malignancies diagnosed since. She is currently admitted with abd pain and distension, persistent and progressive over the last month. She denied fevers, unsure about any wt loss because of the changes in her abd, no N,V, cough, SOB, acute changes in bowel or bladder, rashes, bleeding or other acute changes in her health recently. On admit lab investigations show an elevated lactic acid 2.3, bilirubin 2, AST 217, ALT 39, alk phos 321, macro cytosis with an MCV of 101, hemoglobin normal 13.7, otherwise normal CBC. Abdomen and pelvis CT with contrast reporting a nodular liver margin, most consistent with cirrhosis, multiple innumerable hypodensities scattered throughout both lobes of the liver, largest in the liver dome 3.4 cm. No focal mass otherwise in the pancreas, spleen or adrenal glands. Bowel loops normal. No renal mass or hydronephrosis. Marked ascites, no adenopathy. Multiple scattered focal small osseous lesions including the bilateral iliac bones, left hip, T10, T12, L2, L3 and L5. No pathological fractures inflammatory changes in the bowel. Patient was to have paracentesis with cytology and infection workup on the fluid, no fluid was able to be obtained on paracentesis. Patient is now pending liver biopsy, this is scheduled for tomorrow. Review of Systems 14 point ROS is neg except as stated in HPI Past Medical History Past Medical History: Cancer Additional Past Medical History / Comment(s): BREAST CANCER, 21 years ago; insomnia, chemo for 6 months then History of Any Multi-Drug Resistant Organisms: None Reported Past Surgical History: Breast Surgery Additional Past Surgical History / Comment(s): BILAT MASTECTOMY. COLONOSCOPY- LAST ONE 07/2017. LUMPECTOMY LT SIDE. PORT INSERTED AND REMOVED. BILAT CATARACTS Past Anesthesia/Blood Transfusion Reactions: No Reported Reaction, Motion Sickness Past Psychological History: Anxiety Smoking Status: Former smoker Past Alcohol Use History: Rare Additional Past Alcohol Use History / Comment(s): QUIT SMOKING AT AGE 30 WAS SOCIAL SMOKER Past Drug Use History: None Reported - Past Family History Mother Family Medical History: No Reported History Father Family Medical History: Cancer Medications and Allergies Home Medications Medication Instructions Recorded Confirmed Type Calcium Carbonate/Vitamin D3 1 tab PO W/LUNCH 08/10/17 11/06/24 History [Calcium 500-Vit D3 15 Mcg (600 Iu)] Glucosam/Phu-Msm1/C/Haider/Bosw 1 tab PO W/LUNCH 08/10/17 11/06/24 History [Glucosamine-Chondroitin Tablet] Multivitamins, Thera [Multivitamin 1 tab PO W/LUNCH 08/10/17 11/06/24 History (formulary)] Risedronate Sodium [Actonel] 35 mg PO FR 08/10/17 11/06/24 History Zolpidem [Ambien] 10 mg PO HS PRN 08/10/17 11/06/24 History L.acidoph,Paracasei, B.lactis 1 cap PO W/LUNCH 11/06/24 11/06/24 History [Probiotic] Allergies Allergy/AdvReac Type Severity Reaction Status Date / Time No Known Allergies Allergy Verified 11/06/24 16:05 Physical Exam Vitals: Vital Signs Temp Pulse Pulse Resp BP BP Pulse Ox 11/07/24 08:00 16 11/07/24 07:50 97.8 F 81 16 121/75 11/07/24 07:02 97.9 F 82 16 132/77 96 11/07/24 01:09 98.2 F 92 16 111/66 94 L 11/06/24 20:30 98.1 F 80 16 161/77 95 11/06/24 19:49 97.8 F 99 18 143/78 98 11/06/24 16:18 97.2 F L 86 20 138/73 97 11/06/24 13:35 97.6 F 100 16 160/85 95 Intake and Output 11/06/24 11/07/24 11/07/24 22:59 06:59 14:59 Intake Total 780 Balance 780 Intake: Oral 780 Other: Voiding Method Toilet Toilet # Voids 3 2 Weight 71.668 kg - Constitutional General appearance: average body habitus, cooperative, no acute distress - EENT Eyes: EOMI, scleral icterus ENT: hearing grossly normal, normal oropharynx - Neck Neck: no lymphadenopathy - Respiratory Respiratory: bilateral: CTA - Cardiovascular Rhythm: regular Heart sounds: normal: S1, S2 Abnormal Heart Sounds: no systolic murmur, no diastolic murmur, no rub, no S3 Gallop, no S4 Gallop, no click, no other leg Peripheral Edema: bilateral: None - Gastrointestinal General gastrointestinal: no absent bowel sounds, no decreased bowel sounds, distended, no hepatomegaly, no hyperactive bowel sounds, normal bowel sounds, no organomegaly, no rigid, no scaphoid, soft, no splenomegaly, no tenderness, no umbilical hernia, no ventral hernia - Neurologic Neurologic: CNII-XII intact - Musculoskeletal Musculoskeletal: strength equal bilaterally - Psychiatric Psychiatric: A&O x's 3, appropriate affect, intact judgment & insight Results CBC & Chem 7: 11/07/24 00:27 11/07/24 00:27 Labs: Abnormal Lab Results - Last 24 Hours (Table) 11/06/24 11/06/24 11/06/24 Range/Units 14:21 14:21 14:21 RBC (4.10-5.20) 10*6/uL Hgb 15.6 H (12.0-15.0) g/dL MCV (80.0-97.0) fL MCH 33.6 H (27.0-32.0) pg RDW (11.5-14.5) % Eosinophils # 0.02 L (0.04-0.35) 10*3/uL Sodium 134 L (137-145) mmol/L Glucose (74-99) mg/dL Plasma Lactic Acid Sher 2.4 H* (0.7-2.0) mmol/L Total Bilirubin 2.5 H (0.2-1.3) mg/dL AST 286 H (14-36) U/L ALT 103 H (4-34) U/L Alkaline Phosphatase 454 H (38-126) U/L Total Protein (6.3-8.2) g/dL Albumin (3.5-5.0) g/dL Urine Ketones (Negative) 11/06/24 11/06/24 11/06/24 Range/Units 16:14 18:05 21:23 RBC (4.10-5.20) 10*6/uL Hgb (12.0-15.0) g/dL MCV (80.0-97.0) fL MCH (27.0-32.0) pg RDW (11.5-14.5) % Eosinophils # (0.04-0.35) 10*3/uL Sodium (137-145) mmol/L Glucose (74-99) mg/dL Plasma Lactic Acid Sher 2.3 H* 2.3 H* (0.7-2.0) mmol/L Total Bilirubin (0.2-1.3) mg/dL AST (14-36) U/L ALT (4-34) U/L Alkaline Phosphatase (38-126) U/L Total Protein (6.3-8.2) g/dL Albumin (3.5-5.0) g/dL Urine Ketones 1+ H (Negative) 11/07/24 11/07/24 11/07/24 Range/Units 00:22 00:27 00:27 RBC 4.00 L (4.10-5.20) 10*6/uL Hgb (12.0-15.0) g/dL MCV 101.0 H (80.0-97.0) fL MCH 34.3 H (27.0-32.0) pg RDW 15.7 H (11.5-14.5) % Eosinophils # (0.04-0.35) 10*3/uL Sodium 134 L (137-145) mmol/L Glucose 118 H (74-99) mg/dL Plasma Lactic Acid Sher 2.2 H* (0.7-2.0) mmol/L Total Bilirubin 2.0 H (0.2-1.3) mg/dL AST 217 H (14-36) U/L ALT 79 H (4-34) U/L Alkaline Phosphatase 321 H (38-126) U/L Total Protein 5.5 L (6.3-8.2) g/dL Albumin 2.8 L (3.5-5.0) g/dL Urine Ketones (Negative) CT scan - abdomen: report reviewed CT scan - pelvis: report reviewed Assessment and Plan (1) Liver lesion Current Visit: Yes Status: Acute Priority: High Code(s): K76.9 - LIVER DISEASE, UNSPECIFIED SNOMED Code(s): 120292498 (2) Bone lesion Current Visit: Yes Status: Acute Priority: High Code(s): M89.9 - DISORDER OF BONE, UNSPECIFIED SNOMED Code(s): 826188206 Plan: Liver and bone lesions, elevated bilirubin and LFTs - History and patient presentation as documented in HPI - Paracentesis was attempted but not successful. Plans are for biopsy of liver lesion tomorrow. Pending pathology. -Will attempt to see if we can get some records from [facility] regarding her breast cancer. -Supportive care including IV fluids for now Case was discussed at length with Attending. Agree with the plan of care Doctor attests: I performed a history and physical examination of this patient, developed impression and plan of care. Discussed with dictator. I agree with dictators note, documented as a scribe.
[2024-11-07] MEDS: ALPRAZolam 0.25 MG TAB PO PRN (13:49)
[2024-11-07] MEDS: MONTELUKAST 10 MG TAB PO SCH (13:49)
[2024-11-07] MEDS: HYDROmorphone 0.5 MG/0.5 ML SYRINGE IVP PRN (13:52)
[2024-11-07 15:48] LABS: Alpha Fetoprotein, Tumor Mkr <3.00 ng/mL (0.00-7.90)
[2024-11-07 17:40] LABS: Cancer Antigen 19-9 15.1 U/mL (0.0-34.9)
[2024-11-08] MEDS: RISEDRONATE SODIUM 35 MG PO SCH (07:42)
[2024-11-08 12:56] VITALS: RESP 16; TEMP 98.3
[2024-11-08] MEDS: HYDROmorphone 0.5 MG/0.5 ML SYRINGE IVP PRN (13:03)
--- NOTE | 2024-11-08 15:17 | US ---
EXAMINATION TYPE: US paracentesis abd w/image DATE OF EXAM: 11/08/2024 2:18 PM COMPARISON: None. Previous Paracentesis CLINICAL INDICATION: Female, 69 years old with history of diagnostic paracentesis; , ascites TECHNIQUE/FINDINGS: The procedure was discussed with the patient. The risks, complications, benefits, and alternatives we re discussed and any questions were answered. Informed consent was obtained. The patient was placed s upine on the ultrasound table and prepped and draped in the usual sterile fashion. All elements of maximal barrier technique were utilized. Under ultrasound guidance, access into the right lower quadrant was obtained, via the paracentesis catheter system and direct ultrasound guidanc e. Approximately 1.5 liters of fluid was removed. The patient was stable throughout the procedure and re mained stable upon discharge from Department of Radiology. IMPRESSION: Successful paracentesis under ultrasound guidance. [facility], , 11/08/2024 3:15 PM
[2024-11-08 15:28] VITALS: BP 140/85; PULSE 95
[2024-11-08] MEDS ORDERED: HYDROcodone/APAP 5-325MG 1 EACH TAB PO PRN (17:22)
[2024-11-08] MEDS ORDERED: HYDROmorphone 0.5 MG/0.5 ML SYRINGE IVP PRN (17:27)
[2024-11-08] MEDS ORDERED: ONDANSETRON ODT 4 MG TAB PO PRN (17:35)
--- NOTE | 2024-11-08 17:41 | P.PN ---
Subjective Progress Note Date: 11/08/24 No acute events. Pt scheduled today for biopsy. Reporting pain is well controlled on pain regimen Objective - Vital Signs Vital signs: Vital Signs Temp 98.5 F 11/08/24 07:42 Pulse 87 11/08/24 07:42 Resp 18 11/08/24 07:42 BP 129/72 11/08/24 07:42 Pulse Ox 96 11/08/24 07:42 FiO2 Intake & Output 11/07/24 11/08/24 11/08/24 18:59 06:59 18:59 Intake Total 780 Balance 780 Intake: Oral 780 Other: Voiding Method Toilet Toilet # Voids 1 3 - Constitutional General appearance: Present: average body habitus, no acute distress - EENT Eyes: Present: anicteric sclerae, EOMI ENT: Present: hearing grossly normal - Respiratory Details: breathing is even and unlabored - Cardiovascular Details: skin warm and dry - Integumentary Integumentary: Absent: cyanotic, jaundiced - Musculoskeletal Musculoskeletal: Present: strength equal bilaterally - Psychiatric Psychiatric: Present: A&O x's 3 - Labs CBC & Chem 7: 11/07/24 00:27 11/07/24 00:27 Labs: Abnormal Lab Results - Last 24 Hours (Table) 11/07/24 11/07/24 11/07/24 Range/Units 09:30 09:30 09:30 Carcinoembryonic Ag 1706.0 H (0.0-4.9) ng/mL CA 15-3 Antigen >3000.0 H (0.0-32.3) U/mL CA 27-29 7,650.1 H (<38.6) U/mL Assessment and Plan (1) Ascites Current Visit: Yes Status: Acute Code(s): R18.8 - OTHER ASCITES SNOMED Code(s): 821741228 (2) Bone lesion Current Visit: Yes Status: Acute Priority: High Code(s): M89.9 - DISORDER OF BONE, UNSPECIFIED SNOMED Code(s): 765506341 (3) Liver lesion Current Visit: Yes Status: Acute Priority: High Code(s): K76.9 - LIVER DISEASE, UNSPECIFIED SNOMED Code(s): 139935075 Plan: Liver and bone lesions, elevated bilirubin and LFTs - History and patient presentation as documented in HPI. History of breast ca ncer in 2002, treated at [facility] - Paracentesis was attempted but not successful. Plan was for liver biopsy today, but upon further review, will revaluate for paracentesis. After visit today, paracentesis was performed with 1.5L removed. Cytology has been requested -CA 15-3 elevated at >3,000. CEA 1706 -Will request records from [facility] regarding her breast cancer. -Continue supportive care medications. Spoke with pharmD, will transition IV pain meds to oral regimen. [place], zofran and protonix sent to her pharmacy from clinic -Clinic f/u scheduled with Dr. Jasson Rivera on 11/27/24 Case was discussed with Attending. Pt is cleared from hem/onc standpoint once biopsy/cytology obtained Doctor attests: I performed a history and physical examination of this patient, developed impression and plan of care. Discussed with dictator. I agree with dictators note, documented as a scribe.
--- NOTE | 2024-11-08 18:21 | P.DS ---
Providers Date of admission: 11/07/24 08:20 Attending physician: Melissa Cali MD Consults: 11/06/24 17:39 Consult Physician Routine Consulting Provider: Moiz Rivera Consult Reason/Comments: liver and bone metastasis Do you want consulting provider notified?: Yes Primary care physician: [facility] Hospital Course: Discharge diagnoses; Liver metastasis Liver cirrhosis Osseous metastasis Transaminitis and hyperbilirubinemia Ascites Mildly elevated lactic acid likely due to liver cirrhosis Insomnia Osteoporosis Hospital course; 69-year-old female with a past medical history of breast cancer that was treated with bilateral mastectomy 21 years ago at [facility] and also history of hysterectomy presents to the ED with abdominal pain and distention. Patient states that the distention has been worsening over the past 3 to 4 weeks. Symptoms to abdominal bloating. She saw her PCP last week who also treated this abdominal bloating. Patient found to have lactic acid 2.4, total bilirubin 2.5, AST 286, ALT 103, phosphatase 454. Abdominal CT scan showed cirrhotic liver with multiple innumerable hepatic metastatic lesions and multiple small scattered sclerotic osseous metastasis without pathologic fracture and marked ascites. Patient was admitted to the medicine service so that she could be evaluated by hematology and interventional radiology. She was seen evaluate hematology/oncology as well as by interventional radiology. Initially she went for paracentesis, and was determined there is no fluid to be drawn and without drawing the fluid a liver biopsy would not be completed. However, today they were able to remove 1500 cc of yellow, milky fluid which was sent for specimen analysis. However, liver biopsy was not completed today. After discussion with hematology/oncology it was determined that the liver biopsy could be scheduled as an outpatient procedure, follow-up with them. Discussed the importance of regular follow-up, with her PCP as well as hematology/oncology. Very excited for the possibility of discharge today, and happy that the paracentesis was able to be done. Physical Exam: General: nontoxic, no distress, appears at stated age Derm: warm, dry, intact Head: atraumatic, normocephalic, symmetric Eyes: EOMI, anicteric sclera Mouth: no lip lesion, mucus membranes moist Cardiovascular: S1 S2 reg, no murmur, rubs, or gallops Lungs: CTA bilateral, no rales, no accessory muscle use Abdominal: Distended Extremities: no gross muscle atrophy, 1+ lower extremity edema bilaterally Neuro: Alert, Oriented, CNII-XII grossly intact, gait normal Psych: well appearing, appropriate affect Dictation was produced using [employer] dictation software. please excuse any grammatical, word or spelling errors. Alex Drummond MD PGY-1 IM I saw and evaluated the patient during the castillo and critical portions of this encounter, and discussed the case in detail with the resident author of this note, I agree with the Assessment and Plan, and my changes, if any, are highlighted in blue. Patient Condition at Discharge: Stable Plan - Discharge Summary New Discharge Prescriptions: Continue Zolpidem [Ambien] 10 mg PO HS PRN PRN Reason: SLEEP Risedronate Sodium [Actonel] 35 mg PO FR Multivitamins, Thera [Multivitamin (formulary)] 1 tab PO W/LUNCH Glucosam/Phu-Msm1/C/Haider/Bosw [Glucosamine-Chondroitin Tablet] 1 tab PO W/LUNCH Calcium Carbonate/Vitamin D3 [Calcium 500-Vit D3 15 Mcg (600 Iu)] 1 tab PO W/LUNCH L.acidoph,Paracasei, B.lactis [Probiotic] 1 cap PO W/LUNCH Discharge Medication List Calcium Carbonate/Vitamin D3 [Calcium 500-Vit D3 15 Mcg (600 Iu)] 1 tab PO W/LUNCH 08/10/17 [History] Glucosam/Phu-Msm1/C/Haider/Bosw [Glucosamine-Chondroitin Tablet] 1 tab PO W/LUNCH 08/10/17 [History] Multivitamins, Thera [Multivitamin (formulary)] 1 tab PO W/LUNCH 08/10/17 [History] Risedronate Sodium [Actonel] 35 mg PO FR 08/10/17 [History] Zolpidem [Ambien] 10 mg PO HS PRN 08/10/17 [History] L.acidoph,Paracasei, B.lactis [Probiotic] 1 cap PO W/LUNCH 11/06/24 [History] Follow up Appointment(s)/Referral(s): Luis F Shannon MD [Primary Care Provider] - 1-2 days Moiz Rivera MD [STAFF PHYSICIAN] - 11/27/24 2:15 pm Patient Instructions/Handouts: Ascites (DC), Paracentesis (DC) Discharge Disposition: HOME SELF-CARE
[2024-11-08 20:39] LABS: LDH, Body Fluid Source Ascites
[2024-11-08 21:37] LABS: Appearance,BF Turbid (Clear)
[2024-11-09] MEDS ORDERED: PANTOPRAZOLE 40 MG TABLET PO SCH (07:30)
== END 2024-11-08 17:56 | disposition home or self-care (01) | DRG 436 ==
LOC: EC 13:25 → 5NMEDONC 17:37 → OBSVTOIN 11-07 08:20
PROVIDERS: ADMIT Internal Medicine; ATTEND Internal Medicine
PROC: 0W9G3ZZ Drainage of Peritoneal Cavity, Percutaneous Approach (ICD-10-PCS; principal; 2024-11-08)
DX: C78.7 Secondary malignant neoplasm of liver and intrahepatic bile duct (principal); C79.51 Secondary malignant neoplasm of bone; E87.20 Acidosis, unspecified; R18.8 Other ascites; K74.60 Unspecified cirrhosis of liver; Z85.3 Personal history of malignant neoplasm of breast; D75.89 Other specified diseases of blood and blood-forming organs; F41.9 Anxiety disorder, unspecified; Z90.710 Acquired absence of both cervix and uterus; G47.00 Insomnia, unspecified; M81.0 Age-related osteoporosis without current pathological fracture; Z90.13 Acquired absence of bilateral breasts and nipples; Z87.891 Personal history of nicotine dependence; Z98.42 Cataract extraction status, left eye; Z98.41 Cataract extraction status, right eye
CPT/HCPCS: 36415; 49083; 74177; 76705; 80053; 81003; 82105; 82150; 82378; 83605; 83615; 83690; 85025; 85610; 85730; 86300; 86301; 87070; 87075; 87205; 89050; 96361; 96374; 96375; 99285

== ENCOUNTER 2024-11-17 17:42 | Inpatient (IN) | payer MEDICARE, BC ==
--- NOTE | 2024-11-17 19:28 | ED ---
General Adult HPI - General Chief complaint: Recheck/Abnormal Lab/Rx Stated complaint: abdominal swelling Time Seen by Provider: 11/17/24 19:11 Source: patient, RN notes reviewed Mode of arrival: wheelchair Limitations: no limitations - History of Present Illness Initial comments: Patient is a 69-year-old female present to the emergency department with with abdominal distention. Patient had her abdomen drained 9 days ago however has returned. Patient is feeling short of breath. Patient also has a leg edema. Patient is having some intermittent confusion. Confusion was somewhat related to her pain medication however patient stopped this 48 hours ago and still has had some intermittent confusion. describes this as not knowing where she is at. No history of specific liver disease however patient does have history of distant breast cancer 22 years ago and recent CAT scan with questionable liver lesion. - Related Data Home Medications Medication Instructions Recorded Confirmed Calcium Carbonate/Vitamin D3 1 tab PO W/LUNCH 08/10/17 11/06/24 [Calcium 500-Vit D3 15 Mcg (600 Iu)] Glucosam/Phu-Msm1/C/Haider/Bosw 1 tab PO W/LUNCH 08/10/17 11/06/24 [Glucosamine-Chondroitin Tablet] Multivitamins, Thera [Multivitamin 1 tab PO W/LUNCH 08/10/17 11/06/24 (formulary)] Risedronate Sodium [Actonel] 35 mg PO FR 08/10/17 11/06/24 Zolpidem [Ambien] 10 mg PO HS PRN 08/10/17 11/06/24 L.acidoph,Paracasei, B.lactis 1 cap PO W/LUNCH 11/06/24 11/06/24 [Probiotic] Allergies Allergy/AdvReac Type Severity Reaction Status Date / Time No Known Allergies Allergy Verified 11/17/24 18:12 Review of Systems ROS Statement: Those systems with pertinent positive or pertinent negative responses have been documented in the HPI. ROS Other: All systems not noted in ROS Statement are negative. Constitutional: Denies: fever Eyes: Denies: eye pain ENT: Reports: congestion Respiratory: Reports: cough, dyspnea Cardiovascular: Denies: chest pain Gastrointestinal: Reports: as per HPI, abdominal pain Skin: Denies: rash Neurological: Denies: weakness Past Medical History Past Medical History: Cancer Additional Past Medical History / Comment(s): BREAST CANCER, 21 years ago; insomnia, chemo for 6 months then History of Any Multi-Drug Resistant Organisms: None Reported Past Surgical History: Breast Surgery Additional Past Surgical History / Comment(s): BILAT MASTECTOMY. COLONOSCOPY- LAST ONE 07/2017. LUMPECTOMY LT SIDE. PORT INSERTED AND REMOVED. BILAT CATARACTS Past Anesthesia/Blood Transfusion Reactions: No Reported Reaction, Motion Sickness Past Psychological History: Anxiety Smoking Status: Former smoker Past Alcohol Use History: Rare Past Drug Use History: None Reported - Past Family History Mother Family Medical History: No Reported History Father Family Medical History: Cancer General Exam Limitations: no limitations General appearance: alert, in no apparent distress Head exam: Present: normocephalic Eye exam: Present: normal appearance, PERRL, EOMI ENT exam: Present: mucous membranes dry Neck exam: Present: normal inspection Respiratory exam: Present: normal lung sounds bilaterally Cardiovascular Exam: Present: regular rate, normal rhythm GI/Abdominal exam: Present: soft, distended. Absent: tenderness, pulsatile mass Extremities exam: Present: pedal edema. Absent: calf tenderness Neurological exam: Present: alert, oriented X3, CN II-XII intact. Absent: motor sensory deficit Psychiatric exam: Present: normal affect, normal mood Skin exam: Present: normal color Course Vital Signs 11/17/24 11/17/24 18:09 20:20 Temperature 97.7 F 97.7 F Pulse Rate 105 H 98 Respiratory 17 16 Rate Blood Pressure 134/80 134/88 O2 Sat by Pulse 99 97 Oximetry Medical Decision Making - Medical Decision Making Was pt. sent in by a medical professional or institution (, PA, CIRCULAR DISTRIBUTOR, urgent care, hospital, or alf...) When possible be specific @ -No Did you speak to anyone other than the patient for history (EMS, parent, family, police, friend...)? What history was obtained from this source @ - is present and provides majority of history, specifically history pertaining to patient confusion Did you review nursing and triage notes (agree or disagree)? Why? @ -I reviewed and agree with nursing and triage notes Were old charts reviewed (outside hosp., previous admission, EMS record, old EKG, old radiological studies, urgent care reports/EKG's, alf records)? Report findings @ -No old charts were reviewed Differential Diagnosis (chest pain, altered mental status, abdominal pain women, abdominal pain men, vaginal bleeding, weakness, fever, dyspnea, syncope, headache, dizziness, GI bleed, back pain, seizure, CVA, palpatations, mental health, musculoskeletal)? @ -Differential Dyspnea: Coronary syndrome, arrhythmia, tamponade, asthma, COPD, pulmonary embolism, pneumonia, pneumothorax, pulmonary effusion, anaphylaxis, diabetic ketoacidosis, flailed chest, pulmonary contusion, diaphragmatic rupture, anemia, n euromuscular, this is not meant to be an all-inclusive list. EKG interpreted by me (3pts min.). @ -As above X-rays interpreted by me (1pt min.). @ -Chest x-ray shows small left greater than right effusion, abdominal x-ray shows no acute process CT interpreted by me (1pt min.). @ -CT scan of the brain without acute abnormality U/S interpreted by me (1pt. min.). @ -None done What testing was considered but not performed or refused? (CT, X-rays, U/S, labs)? Why? @ -None What meds were considered but not given or refused? Why? @ -None Did you discuss the management of the patient with other professionals (professionals i.e. , PA, CIRCULAR DISTRIBUTOR, lab, RT, psych nurse, social work assistant, buckle strap drum operator, teacher, complaint investigations officer, rehabilitation case coordinator)? Give summary @ -Case was discussed with Dr. Walters who admit covering Dr. Santamaria Was smoking cessation discussed for >3mins.? @ -No Was critical care preformed (if so, how long)? @ -No Were there social determinants of health that impacted care today? How? (Home lessness, low income, unemployed, alcoholism, drug addiction, transportation, low edu. Level, literacy, decrease access to med. care, half-way, rehab)? @ -No Was there de-escalation of care discussed even if they declined (Discuss DNR or withdrawal of care, Hospice)? DNR status @ -No What co-morbidities impacted this encounter? (DM, HTN, Smoking, COPD, CAD, Cancer, CVA, ARF, Chemo, Hep., AIDS, mental health diagnosis, sleep apnea, morbid obesity)? @ -Recent metastatic liver disease concern Was patient admitted / discharged? Hospital course, mention meds given and route, prescriptions, significant lab abnormalities, going to OR and other pertinent info. @ -Patient presents with dyspnea, intermittent confusion and worsening abdominal ascites with leg edema. Chemistry and ammonia still pending. Patient will be admitted to medicine with oncology consult and IR for paracentesis. Patient and family reevaluated and updated Undiagnosed new problem with uncertain prognosis? @ -No Drug Therapy requiring intensive monitoring for toxicity (Heparin, Nitro, Insulin, Cardizem)? @ -No Were any procedures done? @ -No Diagnosis/symptom? @ -Ascites Acute, or Chronic, or Acute on Chronic? @ -Acute Uncomplicated (without systemic symptoms) or Complicated (systemic symptoms)? @ -Default Side effects of treatment? @ -No Exacerbation, Progression, or Severe Exacerbation? @ -No Poses a threat to life or bodily function? How? (Chest pain, USA, OR, pneumonia, PE, COPD, DKA, ARF, appy, cholecystitis, CVA, Diverticulitis, Homicidal, Suicidal, threat to staff... and all critical care pts) @ -No - Lab Data Result diagrams: 11/17/24 19:48 Lab Results 11/17/24 11/17/24 11/17/24 Range/Units 19:48 19:48 19:48 WBC 9.02 (4.50-10.00) 10*3/uL RBC 4.45 (4.10-5.20) 10*6/uL Hgb 15.2 H (12.0-15.0) g/dL Hct 41.6 (37.2-46.3) % MCV 93.5 D (80.0-97.0) fL MCH 34.2 H (27.0-32.0) pg MCHC 36.5 (32.0-37.0) g/dL Plt Count 347 (140-440) 10*3/uL MPV 10.0 (9.5-12.2) fL Immature Gran % (Auto) 1.0 % Neutrophils % 67.2 % Lymphocytes % 13.4 % Monocytes % 16.5 % Eosinophils % 1.2 % Basophils % 0.7 % Immature Gran # 0.09 H (0.00-0.04) 10*3/uL Neutrophils # 6.06 (1.80-7.70) 10*3/uL Lymphocytes # 1.21 (0.90-5.00) 10*3/uL Monocytes # 1.49 H (0.20-1.00) 10*3/uL Eosinophils # 0.11 (0.04-0.35) 10*3/uL Basophils # 0.06 (0.00-0.10) 10*3/uL PT 11.5 (10.0-12.5) sec INR 1.1 (<1.2) APTT 24.7 (22.0-30.0) sec Urine Color Urine Appearance (Clear) Urine pH (5.0-8.0) Ur Specific [place] (1.001-1.035) Urine Protein (Negative) Urine Glucose (UA) (Negative) Urine Ketones (Negative) Urine Blood (Negative) Urine Nitrite (Negative) Urine Bilirubin (Negative) Urine Urobilinogen (<2.0) mg/dL Ur Leukocyte Esterase (Negative) Influenza Type A (PCR) Not Detected (Not Detectd) Influenza Type B (PCR) Not Detected (Not Detectd) RSV (PCR) Not Detected (Not Detectd) SARS-CoV-2 (PCR) Not Detected (Not Detectd) 11/17/24 Range/Units 19:48 WBC (4.50-10.00) 10*3/uL RBC (4.10-5.20) 10*6/uL Hgb (12.0-15.0) g/dL Hct (37.2-46.3) % MCV (80.0-97.0) fL MCH (27.0-32.0) pg MCHC (32.0-37.0) g/dL Plt Count (140-440) 10*3/uL MPV (9.5-12.2) fL Immature Gran % (Auto) % Neutrophils % % Lymphocytes % % Monocytes % % Eosinophils % % Basophils % % Immature Gran # (0.00-0.04) 10*3/uL Neutrophils # (1.80-7.70) 10*3/uL Lymphocytes # (0.90-5.00) 10*3/uL Monocytes # (0.20-1.00) 10*3/uL Eosinophils # (0.04-0.35) 10*3/uL Basophils # (0.00-0.10) 10*3/uL PT (10.0-12.5) sec INR (<1.2) APTT (22.0-30.0) sec Urine Color Yellow Urine Appearance Clear (Clear) Urine pH 5.5 (5.0-8.0) Ur Specific [place] 1.019 (1.001-1.035) Urine Protein Negative (Negative) Urine Glucose (UA) Negative (Negative) Urine Ketones Negative (Negative) Urine Blood Negative (Negative) Urine Nitrite Negative (Negative) Urine Bilirubin 1+ H (Negative) Urine Urobilinogen 4.0 (<2.0) mg/dL Ur Leukocyte Esterase Negative (Negative) Influenza Type A (PCR) (Not Detectd) Influenza Type B (PCR) (Not Detectd) RSV (PCR) (Not Detectd) SARS-CoV-2 (PCR) (Not Detectd) Disposition Clinical Impression: Ascites Disposition: ADMITTED IP TO THIS HOSP Is patient prescribed a controlled substance at d/c from ED?: No Referrals: Luis F Shannon MD [Primary Care Provider] - 1-2 days Time of Disposition: 22:02
[2024-11-17 20:18] LABS: Basophils # (A) 0.06 10*3/uL (0.00-0.10); Basophils % (A) 0.7 %; Eosinophils # (A) 0.11 10*3/uL (0.04-0.35); Eosinophils % (A) 1.2 %; HCT 41.6 % (37.2-46.3); HGB 15.2 g/dL (12.0-15.0); Lymphocytes # (A) 1.21 10*3/uL (0.90-5.00); Lymphocytes % (A) 13.4 %; MCH 34.2 pg (27.0-32.0); MCHC 36.5 g/dL (32.0-37.0); Monocytes # (A) 1.49 10*3/uL (0.20-1.00); Monocytes % (A) 16.5 %; Neutrophils # (A) 6.06 10*3/uL (1.80-7.70); Neutrophils % (A) 67.2 %; Platelet Count 347 10*3/uL (140-440); RBC 4.45 10*6/uL (4.10-5.20); RDW 16.9 % (11.5-14.5); WBC 9.02 10*3/uL (4.50-10.00)
--- NOTE | 2024-11-17 20:23 | XR ---
EXAMINATION TYPE: XR chest 2V DATE OF EXAM: 11/17/2024 8:04 PM COMPARISON: None CLINICAL INDICATION: Female, 69 years old with history of yazmin; [facility] TECHNIQUE: XR chest 2V Frontal and lateral views of the chest. FINDINGS: Lungs/Pleura: No evidence of focal consolidation or pneumothorax. Blunting of the costophrenic angles is present. Pulmonary vascularity: Unremarkable. Heart/mediastinum: Cardiomediastinal silhouette is unremarkable. Musculoskeletal: No acute osseous pathology. Other findings: None Lines/Tubes: IMPRESSION: 1. No acute cardiopulmonary disease/process. 2. Small bilateral pleural effusions. [facility], , 11/17/2024 8:21 PM
--- NOTE | 2024-11-17 20:26 | XR ---
EXAMINATION TYPE: XR KUB DATE OF EXAM: 11/17/2024 8:04 PM COMPARISON: None CLINICAL INDICATION: Female, 69 years old with history of abdominal pain; [facility] TECHNIQUE: One radiographic view of the abdomen was obtained. FINDINGS: The bowel gas pattern is nonspecific without dilated loops of small or large bowel. . Fecal material and gas are demonstrated throughout the colon and rectum. There is no evidence for organome di or pneumoperitoneum. No evidence of fracture. Multilevel degeneration changes spine with osteop hyte formation and disc space narrowing. Mild degeneration changes of the hips with osteophyte inform ation joint space narrowing. No abnormal calcifications are present. IMPRESSION: Nonspecific bowel gas pattern without radiographic evidence for acute process. [facility], , 11/17/2024 8:23 PM
--- NOTE | 2024-11-17 20:27 | CT ---
EXAMINATION TYPE: CT brain wo con DATE OF EXAM: 11/17/2024 8:11 PM COMPARISON: None. CLINICAL INDICATION: Female, 69 years old with history of ams, ams TECHNIQUE: Brain: Axial CT images of the brain were obtained with coronal and sagittal reformats created and rev iewed. Contrast used: None. Oral contrast used: None. CT DLP: 1176.2 mGycm, Automated exposure control for dose reduction was used. FINDINGS: Brain: Extra-axial spaces: No abnormal extra-axial fluid collections. Ventricular system: Within normal limits Cerebral parenchyma: No acute intraparenchymal hemorrhage or mass effect. The lundy-white junction is well differentiated. Cerebellum: Unremarkable. Mass effect: No evidence of midline shift. Intracranial vasculature: Atherosclerotic calcifications of the intracranial vessels. Soft tissues: Normal. Calvarium/osseous structures: No depressed skull fracture. Paranasal sinuses and mastoid air cells: Mild scattered paranasal sinus disease. Visualized orbits: Orbital contents are intact. IMPRESSION: No acute intracranial process. [facility], , 11/17/2024 8:24 PM
[2024-11-17 20:33] LABS: Appearance,Urine Clear (Clear); Bilirubin,Urine 1+ (Negative); Blood,Urine Negative (Negative); Color,Urine Yellow; Glucose,Urine (UA) Negative (Negative); Ketones,Urine Negative (Negative); Leukocyte Esterase,Urine Negative (Negative); Nitrite,Urine Negative (Negative); PH, Urine 5.5 (5.0-8.0); Protein,Urine Negative (Negative); Specific Gravity,Urine 1.019 (1.001-1.035)
[2024-11-17 20:47] LABS: INR 1.1 (<1.2); Partial Thromboplastin Time 24.7 sec (22.0-30.0); Prothrombin Time 11.5 sec (10.0-12.5)
[2024-11-17 20:58] LABS: Influenza A Not Detected (Not Detectd); Influenza B Not Detected (Not Detectd); RSV Not Detected (Not Detectd)
[2024-11-17 21:14] LABS: MCV 93.5 fL (80.0-97.0)
[2024-11-17] MEDS: ONDANSETRON 4 MG/2 ML VIAL IVP STA (21:37)
[2024-11-17] MEDS: MORPHINE SULFATE 2 MG/ML SYRINGE IVP STA (21:37)
[2024-11-17] MEDS ORDERED: NALOXONE 0.4 MG/ML 1 ML VIAL IV PRN (22:03)
[2024-11-17 22:04] LABS: ALT 156 U/L (4-34); African American GFR (CKD) 52 (>60 ml/min/1.73 sqM); Albumin 3.1 g/dL (3.5-5.0); Amylase 74 U/L (30-110); Anion Gap 13 mmol/L; Blood Urea Nitrogen 42 mg/dL (7-17); Calcium 9.9 mg/dL (8.4-10.2); Carbon Dioxide 25 mmol/L (22-30); Chloride 92 mmol/L (98-107); Glucose 98 mg/dL (74-99); Lipase 544 U/L (23-300); Non-African American GFR(CKD) 45 (>60 ml/min/1.73 sqM); Sodium 130 mmol/L (137-145); Total Bilirubin 5.7 mg/dL (0.2-1.3); Total Protein 6.4 g/dL (6.3-8.2)
[2024-11-17 22:20] LABS: AST 344 U/L (14-36); Potassium 4.8 mmol/L (3.5-5.1)
[2024-11-17 22:21] LABS: Alkaline Phosphatase 1078 U/L (38-126)
--- NOTE | 2024-11-17 23:47 | P.HPIM ---
History of Present Illness H&P Date: 11/17/24 69-year-old female with history of breast cancer 22 years ago Coming in for worsening abdominal distention and difficulty breathing along with bilateral leg edema. She was admitted to the hospital and discharged about a week ago for similar problem she has been having progressive abdominal distent ion over the past 4 to 6 weeks which initially she thought maybe she gained weight or is bloated then was found to have significant amount of ascites where she was drained 1.5 L during last admission. She was also found to have metastatic lesions to the liver and bone however was not able to get a liver biopsy during her last hospital admission. She otherwise denies any fevers or chills denies any changes in bowel or urinary habits she does report dark urine, denies any abdominal pain, her reports occasional confusion which was thought to be secondary to pain meds the last time she took pain meds about 48 hours ago which since then she starts to have some improvement in her mental status Patient denies any drug abuse alcohol or smoking review of systems Pertinent positives as noted in HPI. All other systems were reviewed and are negative on exam Constitutional: No acute distress, conversant, pleasant Eyes: Mild scleral jaundice, moist conjunctiva, Pupils equal round reactive to light, ENMT: NC/AT Oropharynx clear, no erythema, or exudates Neck: Supple, no masses, or JVD No carotid bruits No thyromegaly Lungs: Good breath sounds with rales at lung bases bilaterally Clear to percussion Normal respiratory effort, no accessory muscle use Cardiovascular: Heart regular in rate and rhythm, No murmurs, gallops, or rubs +1 bilateral peripheral leg edema Abdominal: Distended abdomen Nontender, no guarding, rebound or rigidity Transmitted throughout positive bowel sounds positive Extremities: No digital cyanosis No clubbing Pedal pulses intact and symmetrical Radial pulses intact and symmetrical No calf tenderness Psychiatric: Alert and oriented to person, place and time Appropriate affect fair judgement Neuro Muscles Strength 5/5 in all 4 extremities Sensation to light touch grossly present throughout Cranial nerves II-XII grossly intact Past Medical History Past Medical History: Cancer Additional Past Medical History / Comment(s): BREAST CANCER, 21 years ago; insomnia, chemo for 6 months then History of Any Multi-Drug Resistant Organisms: None Reported Past Surgical History: Breast Surgery Additional Past Surgical History / Comment(s): BILAT MASTECTOMY. COLONOSCOPY- LAST ONE 07/2017. LUMPECTOMY LT SIDE. PORT INSERTED AND REMOVED. BILAT CATARACTS Past Anesthesia/Blood Transfusion Reactions: No Reported Reaction, Motion Sickness Past Psychological History: Anxiety Smoking Status: Former smoker Past Alcohol Use History: Rare Past Drug Use History: None Reported - Past Family History Mother Family Medical History: No Reported History Father Family Medical History: Cancer Medications and Allergies Home Medications Medication Instructions Recorded Confirmed Type Calcium Carbonate/Vitamin D3 1 tab PO W/LUNCH 08/10/17 11/06/24 History [Calcium 500-Vit D3 15 Mcg (600 Iu)] Glucosam/Phu-Msm1/C/Haider/Bosw 1 tab PO W/LUNCH 08/10/17 11/06/24 History [Glucosamine-Chondroitin Tablet] Multivitamins, Thera [Multivitamin 1 tab PO W/LUNCH 08/10/17 11/06/24 History (formulary)] Risedronate Sodium [Actonel] 35 mg PO FR 08/10/17 11/06/24 History Zolpidem [Ambien] 10 mg PO HS PRN 08/10/17 11/06/24 History L.acidoph,Paracasei, B.lactis 1 cap PO W/LUNCH 11/06/24 11/06/24 History [Probiotic] Allergies Allergy/AdvReac Type Severity Reaction Status Date / Time No Known Allergies Allergy Verified 11/17/24 18:12 Physical Exam Vitals: Vital Signs Temp Pulse Resp BP Pulse Ox 11/17/24 22:00 91 18 126/68 96 11/17/24 20:20 97.7 F 98 16 134/88 97 11/17/24 18:09 97.7 F 105 H 17 134/80 99 Intake and Output 11/17/24 11/17/24 11/18/24 14:59 22:59 06:59 Other: Weight 65.771 kg Results CBC & Chem 7: 11/17/24 19:48 11/17/24 20:40 Labs: Abnormal Lab Results - Last 24 Hours (Table) 11/17/24 11/17/24 11/17/24 Range/Units 19:48 19:48 20:40 Hgb 15.2 H (12.0-15.0) g/dL MCH 34.2 H (27.0-32.0) pg Immature Gran # 0.09 H (0.00-0.04) 10*3/uL Monocytes # 1.49 H (0.20-1.00) 10*3/uL Sodium 130 L (137-145) mmol/L Chloride 92 L (98-107) mmol/L BUN 42 H (7-17) mg/dL Creatinine 1.23 H (0.52-1.04) mg/dL Total Bilirubin 5.7 H (0.2-1.3) mg/dL AST 344 H (14-36) U/L ALT 156 H (4-34) U/L Alkaline Phosphatase 1078 H (38-126) U/L Ammonia (<30) umol/L Albumin 3.1 L (3.5-5.0) g/dL Lipase 544 H (23-300) U/L Urine Bilirubin 1+ H (Negative) 11/17/24 Range/Units 20:40 Hgb (12.0-15.0) g/dL MCH (27.0-32.0) pg Immature Gran # (0.00-0.04) 10*3/uL Monocytes # (0.20-1.00) 10*3/uL Sodium (137-145) mmol/L Chloride (98-107) mmol/L BUN (7-17) mg/dL Creatinine (0.52-1.04) mg/dL Total Bilirubin (0.2-1.3) mg/dL AST (14-36) U/L ALT (4-34) U/L Alkaline Phosphatase (38-126) U/L Ammonia 55 H (<30) umol/L Albumin (3.5-5.0) g/dL Lipase (23-300) U/L Urine Bilirubin (Negative) Assessment and Plan Assessment: 69-year-old female with history of breast cancer 22 years ago coming in due to abdominal distention which i she required abdominal paracentesis about a week ago I discussed case with ED doctor and accepted the admission for recurrent ascites with respiratory distress with anticipated length of stay less than 2 midnights Recurrent significant ascites Suspected metastatic lesion to the liver and bone, unknown primary with history of breast cancer [address] of the brain negative for any acute pathology Chest x-ray showed mild bilateral pleural effusion IR for paracentesis therapeutic Peritoneal fluid analysis from a week ago showed negative result for diagnostic malignancy Symptomatic control Supplemental oxygen as needed Oncology consult Elevated liver enzymes total bili 5.7 AST 3044 ALT 156 alkaline phosphatase 1078 Ammonia 55 Lipase slightly elevated at 544 Acute respiratory viral panel negative for influenza COVID and RSV Acute kidney injury Creatinine 1.2 BUN 42 both slightly elevated potassium 4.8 Hypervolemic hyponatremia secondary to suspected liver cirrhosis IV Lasix as tolerated 40 mg IV push twice daily Monitor urine output Monitor electrolytes Sodium level 130 Full code DVT prophylaxis heparin subcu 3 times daily 5000 unit Check PT/PTT INR to better evaluate liver function
[2024-11-18] MEDS: MORPHINE SULFATE 4 MG/ML SYRINGE IV PRN (00:20)
[2024-11-18 08:25] LABS: Basophils # (A) 0.08 10*3/uL (0.00-0.10); Eosinophils # (A) 0.25 10*3/uL (0.04-0.35); Eosinophils % (A) 3.2 %; HCT 39.6 % (37.2-46.3); HGB 14.1 g/dL (12.0-15.0); Lymphocytes % (A) 19.3 %; MCH 33.7 pg (27.0-32.0); MCHC 35.6 g/dL (32.0-37.0); MCV 94.5 fL (80.0-97.0); Mean Platelet Volume 9.8 fL (9.5-12.2); Monocytes # (A) 1.35 10*3/uL (0.20-1.00); Monocytes % (A) 17.4 %; Neutrophils # (A) 4.52 10*3/uL (1.80-7.70); Neutrophils % (A) 58.2 %; Platelet Count 298 10*3/uL (140-440); RBC 4.19 10*6/uL (4.10-5.20); RDW 17.1 % (11.5-14.5); WBC 7.77 10*3/uL (4.50-10.00)
[2024-11-18] MEDS ORDERED: ONDANSETRON 4 MG/2 ML VIAL IVP PRN (08:35)
[2024-11-18] MEDS: HEPARIN SODIUM,PORCINE 5,000 UNIT/ML 1 ML VIAL SQ SCH (08:44)
[2024-11-18 08:45] LABS: INR 1.1 (<1.2); Partial Thromboplastin Time 22.1 sec (22.0-30.0)
[2024-11-18 08:47] LABS: ALT 139 U/L (4-34); African American GFR (CKD) 64 (>60 ml/min/1.73 sqM); Albumin 2.9 g/dL (3.5-5.0); Anion Gap 11 mmol/L; Blood Urea Nitrogen 36 mg/dL (7-17); Calcium 9.4 mg/dL (8.4-10.2); Carbon Dioxide 22 mmol/L (22-30); Chloride 98 mmol/L (98-107); Glucose 98 mg/dL (74-99); Non-African American GFR(CKD) 56 (>60 ml/min/1.73 sqM); Sodium 131 mmol/L (137-145); Total Bilirubin 4.9 mg/dL (0.2-1.3); Total Protein 6.1 g/dL (6.3-8.2)
[2024-11-18 08:58] LABS: Potassium 5.3 mmol/L (3.5-5.1)
[2024-11-18] MEDS: FUROSEMIDE 10 MG/ML 4 ML VIAL IV SCH (08:58)
[2024-11-18] MEDS: PANTOPRAZOLE 40 MG/10 ML VIAL IV SCH (08:58)
[2024-11-18 08:59] LABS: AST 309 U/L (14-36); Alkaline Phosphatase 1098 U/L (38-126); Magnesium 2.3 mg/dL (1.6-2.3)
--- NOTE | 2024-11-18 12:49 | P.PN ---
Subjective Progress Note Date: 11/18/24 Hospital Course: 69-year-old female with history of breast cancer 22 years ago. Coming in for worsening abdominal distention and difficulty breathing along with bilateral leg edema. She was admitted to the hospital and discharged about a week ago for similar problem she has been having progressive abdominal distention over the past 4 to 6 weeks which initially she thought maybe she gained weight or is bloated then was found to have significant amount of ascites where she was drained 1.5 L during last admission. She was also found to have metastatic lesions to the liver and bone however was not able to get a liver biopsy during her last hospital admission. She otherwise denies any fevers or chills denies any changes in bowel or urinary habits she does report dark urine, denies any abdominal pain, her reports occasional confusion which was thought to be secondary to pain meds the last time she took pain meds about 48 hours ago which since then she starts to have some improvement in her mental status. Patient denies any drug abuse alcohol or smoking. CT of the brain negative for any acute pathology Chest x-ray showed mild bilateral pleural effusion KUB x-ray showed nonspecific bowel gas pattern without radiologic evidience of acute process Subjective: Patient seen and examined at bedside. No acute events overnight. Pertinent positives and negatives as discussed above, a complete review of systems was performed and all other systems are negative. Vitals: Signs Reviewed Physical Exam: General: nontoxic, no distress, appears at stated age Derm: warm, dry, intact Head: atraumatic, normocephalic, symmetric Eyes: EOMI, icteric sclera Mouth: no lip lesion, mucus membranes moist Cardiovascular: S1 S2 reg, no murmur, rubs, or gallops, +1 bilateral peripheral leg edema Lungs: CTA bilateral, no rhonchi, no rales, no accessory muscle use Abdominal: Distended abdomen, non-tender to palpataion, no appreciable organomeg ananth Extremities: no gross muscle atrophy, no contractures Neuro: Alert, Oriented, CNII-XII grossly intact, gait normal Psych: well appearing, appropriate affect Data Received Today: Pertinent Labs: Sodium 131, potassium 5.3 (hemolyzed), BUN 36, creatinine 1.03, total bili 4.9, AST 309, ALT 139, alk phos 1098, LDH 744, total protein 6.1, albumin 2.9 Imaging: Gallbladder ultrasound: Pending Assessment and Plan: 69-year-old female with history of breast cancer 22 years ago coming in due to abdominal distention which i she required abdominal paracentesis about a week ago I discussed case with ED doctor and accepted the admission for recurrent ascites with respiratory distress with anticipated length of stay less than 2 midnights #. Recurrent significant ascites #. Suspected metastatic lesion to the liver and bone, unknown primary with history of breast cancer 22 years ago #. Liver cirrhosis CT of the brain negative for any acute pathology Denies any alcohol history Chest x-ray showed mild bilateral pleural effusion Diagnostic and therapeutic paracentesis by IR today Avoid NSAIDs/pain medication, only topical pain medication as needed Pleural fluid studies ordered to determine to see if this is secondary to portal hypertension versus malignancy If SAAG score positive for portal hypertension consider adding Aldactone along with the Lasix she is currently on Gallbladder ultrasound ordered Oncology consult #. Hyperkalemia, hemolyzed Repeat potassium #. Hypervolemic hyponatremia secondary to suspected liver cirrhosis IV Lasix as tolerated 40 mg IV push twice daily Monitor urine output Monitor electrolytes Sodium level 130 on admission Resolved: MERVAT DVT ppx: 5000 unit heparin SQ every 8 hours on hold prior to paracentesis Code status: Full code Anticipated discharge place: Pending clinical course Anticipated discharge time: Pending clinical course Timmy Kennedy MD PGY-1 IM Dictation was produced using [employer] dictation software. please excuse any gra mmatical, word or spelling errors. I have seen and evaluated the patient today. Discussed with the resident and agree with the residents finding and plan as documented in the resident's note. Changes highlighted in blue font. Objective - Vital Signs Vital signs: Vital Signs Temp 97.7 F 11/17/24 20:20 Pulse 88 11/18/24 06:25 Resp 18 11/18/24 06:25 BP 101/81 11/18/24 06:25 Pulse Ox 96 11/18/24 06:25 FiO2 Intake & Output 11/17/24 11/17/24 11/18/24 06:59 18:59 06:59 Weight 65.771 kg - Labs CBC & Chem 7: 11/18/24 07:56 11/18/24 07:56 Labs: Abnormal Lab Results - Last 24 Hours (Table) 11/17/24 11/17/24 11/17/24 Range/Units 19:48 19:48 20:40 Hgb 15.2 H (12.0-15.0) g/dL MCH 34.2 H (27.0-32.0) pg Immature Gran # 0.09 H (0.00-0.04) 10*3/uL Monocytes # 1.49 H (0.20-1.00) 10*3/uL Sodium 130 L (137-145) mmol/L Chloride 92 L (98-107) mmol/L BUN 42 H (7-17) mg/dL Creatinine 1.23 H (0.52-1.04) mg/dL Total Bilirubin 5.7 H (0.2-1.3) mg/dL AST 344 H (14-36) U/L ALT 156 H (4-34) U/L Alkaline Phosphatase 1078 H (38-126) U/L Ammonia (<30) umol/L Albumin 3.1 L (3.5-5.0) g/dL Lipase 544 H (23-300) U/L Urine Bilirubin 1+ H (Negative) 11/17/24 Range/Units 20:40 Hgb (12.0-15.0) g/dL MCH (27.0-32.0) pg Immature Gran # (0.00-0.04) 10*3/uL Monocytes # (0.20-1.00) 10*3/uL Sodium (137-145) mmol/L Chloride (98-107) mmol/L BUN (7-17) mg/dL Creatinine (0.52-1.04) mg/dL Total Bilirubin (0.2-1.3) mg/dL AST (14-36) U/L ALT (4-34) U/L Alkaline Phosphatase (38-126) U/L Ammonia 55 H (<30) umol/L Albumin (3.5-5.0) g/dL Lipase (23-300) U/L Urine Bilirubin (Negative)
--- NOTE | 2024-11-18 15:32 | US ---
EXAMINATION TYPE: US gallbladder DATE OF EXAM: 11/18/2024 COMPARISON: CT 11/06/2024 CLINICAL INDICATION: Female, 69 years old with history of abd pain; ABD pain TECHNIQUE: Grayscale and color Doppler imaging of the right upper quadrant was performed. FINDINGS: EXAM MEASUREMENTS: Liver Length: 14.5 cm Gallbladder Wall: 0.4 cm Right Kidney: 9.6 x 3.5 x 3.6 cm ICE CREAM DIPPER NOTES: *limitations due to overlying bowel gas Pancreas: Tail obscured by overlying bowel gas Liver: nodular, heterogeneous, multiple subtle mass like areas noted Gallbladder: Nonshadowing echogenic nodular area within the lumen measuring 0.6cm. No hydropic change though there is borderline gallbladder wall thickening. Evidence for sonographic Jasmine's sign: no CBD: Obscured by overlying bowel gas Right Kidney: no evidence of hydronephrosis *Mild ascites IMPRESSION: 1. Numerous masses within the liver, either multifocal HCC or metastatic disease. 2. Mild abdominal ascites fluid. 3. A 6 mm nonshadowing nodular focus within the gallbladder may represent tumefactive sludge. Reasses s at a 4-6 week follow-up. [facility], , 11/18/2024 3:30 PM
--- NOTE | 2024-11-18 17:26 | P.CONS ---
History of Present Illness - Reason for Consult Consult date: 11/18/24 oncological care Requesting physician: Bj Samayoa - Chief Complaint abdominal distention - History of Present Illness Ms. Rosenthal is a 69-year-old female who was initially seen on consult on 11/07/24 for multiple liver and bone lesions. She has a remote Hx of breast carcinoma back in 2002, treated with mastectomy, no malignancies diagnosed since. She is currently admitted with abd pain and distension, persistent and progressive over the last month. She denied fevers, unsure about any wt loss because of the changes in her abd, no N,V, cough, SOB, acute changes in bowel or bladder, rashes, bleeding or other acute changes in her health recently. On admit lab investigations show an elevated lactic acid 2.3, bilirubin 2, AST 217, ALT 39, alk phos 321, macrocytosis with an MCV of 101, hemoglobin normal 13.7, otherwise normal CBC. Abdomen and pelvis CT with contrast reporting a nodular liver margin, most consistent with cirrhosis, multiple innumerable hypodensities scattered throughout both lobes of the liver, largest in the liver dome 3.4 cm. No focal mass otherwise in the pancreas, spleen or adrenal glands. Bowel loops normal. No renal mass or hydronephrosis. Marked ascites, no adenopathy. Multiple scattered focal small osseous lesions including the bilateral iliac bones, left hip, T10, T12, L2, L3 and L5. No pathological fractures. s to have paracentesis with cytology and infection workup on the fluid, no fluid was able to be obtained on paracentesis. Patient is now pending liver biopsy, this is scheduled for tomorrow. Paracentesis was attempted but not successful. Plan was for liver biopsy, but upon further review, patient underwent paracentesis on 11/08/24 with 1.5L removed. Cytology was negative for malignancy. CA 15-3 elevated at >3,000. CEA 1706. Clinic f/u scheduled with Dr. Jasson Rivera on 11/27/24. Patient represented to the ER for persisting abdominal pain and abdominal distention. Upon admit KUB x-ray showed nonspecific bowel gas pattern without radiographic evidence for acute processes. Chest x-ray showing no acute cardiopulmonary processes with small bilateral pleural effusions. CT brain negative for acute intracranial processes. Labs reviewed, bilirubin elevated at 5.7 with transaminitis noted. Amylase 74, lipase 544. Creatinine 1.23, GFR 45, bun 42. WBC 7.7, hemoglobin 14.1, platelets 298,000. Coags WNL. UA negative for UTI. PCR viral panel negative. Review of Systems 10 point ROS is negative except as stated in the HPI Past Medical History Past Medical History: Cancer Additional Past Medical History / Comment(s): BREAST CANCER, 21 years ago; insomnia, chemo for 6 months then History of Any Multi-Drug Resistant Organisms: None Reported Past Surgical History: Breast Surgery Additional Past Surgical History / Comment(s): BILAT MASTECTOMY. COLONOSCOPY- LAST ONE 07/2017. LUMPECTOMY LT SIDE. PORT INSERTED AND REMOVED. BILAT CATARACTS Past Anesthesia/Blood Transfusion Reactions: No Reported Reaction, Motion Sickness Past Psychological History: Anxiety Smoking Status: Former smoker Past Alcohol Use History: Rare Past Drug Use History: None Reported - Past Family History Mother Family Medical History: No Reported History Father Family Medical History: Cancer Medications and Allergies Home Medications Medication Instructions Recorded Confirmed Type Calcium Carbonate/Vitamin D3 1 tab PO W/LUNCH 08/10/17 11/18/24 History [Calcium 500-Vit D3 15 Mcg (600 Iu)] Glucosam/Phu-Msm1/C/Haider/Bosw 1 tab PO W/LUNCH 08/10/17 11/18/24 History [Glucosamine-Chondroitin Tablet] Multivitamins, Thera [Multivitamin 1 tab PO W/LUNCH 08/10/17 11/18/24 History (formulary)] Risedronate Sodium [Actonel] 35 mg PO FR 08/10/17 11/18/24 History Zolpidem [Ambien] 10 mg PO HS PRN 08/10/17 11/18/24 History L.acidoph,Paracasei, B.lactis 1 cap PO W/LUNCH 11/06/24 11/18/24 History [Probiotic] HYDROcodone/APAP 5-325MG [[place] 1 tab PO Q4HR PRN 11/18/24 11/18/24 History 5-325] Ondansetron [Zofran] 4 mg PO Q4H PRN 11/18/24 11/18/24 History Pantoprazole [Protonix] 40 mg PO DAILY 11/18/24 11/18/24 History Allergies Allergy/AdvReac Type Severity Reaction Status Date / Time No Known Allergies Allergy Verified 11/18/24 09:30 Physical Exam Vitals: Vital Signs Temp Pulse Pulse Resp BP BP Pulse Ox 11/18/24 07:55 97.7 F 92 16 123/72 97 11/18/24 06:25 88 18 101/81 96 11/18/24 05:08 85 18 122/60 97 11/18/24 01:07 94 18 124/70 98 11/17/24 22:00 91 18 126/68 96 11/17/24 20:20 97.7 F 98 16 134/88 97 11/17/24 18:09 97.7 F 105 H 17 134/80 99 Intake and Output 11/17/24 11/18/24 11/18/24 22:59 06:59 14:59 Other: Weight 65.771 kg - Constitutional General appearance: average body habitus - EENT Eyes: EOMI ENT: hearing grossly normal - Respiratory Respiratory: bilateral: CTA - Cardiovascular Rhythm: regular - Gastrointestinal General gastrointestinal: distended, tenderness - Integumentary Integumentary: jaundiced - Musculoskeletal Musculoskeletal: generalized weakness - Psychiatric Psychiatric: A&O x's 3 Results CBC & Chem 7: 11/18/24 07:56 11/18/24 07:56 Labs: Abnormal Lab Results - Last 24 Hours (Table) 11/17/24 11/17/24 11/17/24 Range/Units 19:48 19:48 20:40 Hgb 15.2 H (12.0-15.0) g/dL MCH 34.2 H (27.0-32.0) pg Immature Gran # 0.09 H (0.00-0.04) 10*3/uL Monocytes # 1.49 H (0.20-1.00) 10*3/uL Sodium 130 L (137-145) mmol/L Potassium (3.5-5.1) mmol/L Chloride 92 L (98-107) mmol/L BUN 42 H (7-17) mg/dL Creatinine 1.23 H (0.52-1.04) mg/dL Total Bilirubin 5.7 H (0.2-1.3) mg/dL AST 344 H (14-36) U/L ALT 156 H (4-34) U/L Alkaline Phosphatase 1078 H (38-126) U/L Ammonia (<30) umol/L Lactate Dehydrogenase (120-246) U/L Total Protein (6.3-8.2) g/dL Albumin 3.1 L (3.5-5.0) g/dL Lipase 544 H (23-300) U/L Urine Bilirubin 1+ H (Negative) 11/17/24 11/18/24 11/18/24 Range/Units 20:40 07:56 07:56 Hgb (12.0-15.0) g/dL MCH 33.7 H (27.0-32.0) pg Immature Gran # 0.07 H (0.00-0.04) 10*3/uL Monocytes # 1.35 H (0.20-1.00) 10*3/uL Sodium 131 L (137-145) mmol/L Potassium 5.3 H (3.5-5.1) mmol/L Chloride (98-107) mmol/L BUN 36 H (7-17) mg/dL Creatinine (0.52-1.04) mg/dL Total Bilirubin 4.9 H (0.2-1.3) mg/dL AST 309 H (14-36) U/L ALT 139 H (4-34) U/L Alkaline Phosphatase 1098 H (38-126) U/L Ammonia 55 H (<30) umol/L Lactate Dehydrogenase (120-246) U/L Total Protein 6.1 L (6.3-8.2) g/dL Albumin 2.9 L (3.5-5.0) g/dL Lipase (23-300) U/L Urine Bilirubin (Negative) 11/18/24 Range/Units 07:56 Hgb (12.0-15.0) g/dL MCH (27.0-32.0) pg Immature Gran # (0.00-0.04) 10*3/uL Monocytes # (0.20-1.00) 10*3/uL Sodium (137-145) mmol/L Potassium (3.5-5.1) mmol/L Chloride (98-107) mmol/L BUN (7-17) mg/dL Creatinine (0.52-1.04) mg/dL Total Bilirubin (0.2-1.3) mg/dL AST (14-36) U/L ALT (4-34) U/L Alkaline Phosphatase (38-126) U/L Ammonia (<30) umol/L Lactate Dehydrogenase 744 H (120-246) U/L Total Protein (6.3-8.2) g/dL Albumin (3.5-5.0) g/dL Lipase (23-300) U/L Urine Bilirubin (Negative) Chest x-ray: report reviewed Abdominal x-ray: report reviewed CT Scan - head: report reviewed Assessment and Plan (1) Ascites Current Visit: Yes Status: Acute Code(s): R18.8 - OTHER ASCITES SNOMED Code(s): 037609714 (2) Bone lesion Current Visit: Yes Status: Acute Priority: High Code(s): M89.9 - DISORDER OF BONE, UNSPECIFIED SNOMED Code(s): 849615854 (3) Liver lesion Current Visit: Yes Status: Acute Priority: High Code(s): K76.9 - LIVER DISEASE, UNSPECIFIED SNOMED Code(s): 994252544 Plan: Liver and bone lesions, hyperbilirubinemia/transaminitis, recurrent ascites: - History and patient presentation as documented in HPI. History of breast cancer in 2002, treated at [facility] - Paracentesis was attempted but not successful. Plan was for liver biopsy, but upon further review, patient underwent paracentesis on 11/08/24 with 1.5L removed and liver biopsy was not obtained at that time. Cytology was negative for malignancy. -CA 15-3 elevated at >3,000. CEA 1706 -Bilirubin elevated at 5.7 with transaminitis noted. Amylase 74, lipase 544. -Repeat paracentesis ordered, cytology requested. Liver biopsy also ordered. Spoke with IR will plan for paracentesis and biopsy tomorrow, 11/19 -Concern for recurrence of breast cancer. Further treatment recs, pending workup -Will request records from [facility] regarding her breast cancer -Clinic f/u scheduled with Dr. Jasson Rivera on 11/27/24 Doctor attests: I performed a history and physical examination of this patient, developed impression and plan of care. Discussed with dictator. I agree with dictators note, documented as a scribe.
[2024-11-18] MEDS: traMADol 50 MG TAB PO PRN (20:54)
[2024-11-19] MEDS: HYDROcodone/APAP 5-325MG 1 EACH TAB PO PRN (01:39)
[2024-11-19 07:37] LABS: Basophils # (A) 0.08 10*3/uL (0.00-0.10); Basophils % (A) 1.2 %; Eosinophils # (A) 0.31 10*3/uL (0.04-0.35); Eosinophils % (A) 4.6 %; HCT 38.3 % (37.2-46.3); HGB 13.7 g/dL (12.0-15.0); Lymphocytes # (A) 1.53 10*3/uL (0.90-5.00); Lymphocytes % (A) 22.5 %; MCH 33.5 pg (27.0-32.0); MCHC 35.8 g/dL (32.0-37.0); MCV 93.6 fL (80.0-97.0); Mean Platelet Volume 9.5 fL (9.5-12.2); Monocytes # (A) 1.38 10*3/uL (0.20-1.00); Monocytes % (A) 20.3 %; Neutrophils # (A) 3.44 10*3/uL (1.80-7.70); Neutrophils % (A) 50.5 %; Platelet Count 268 10*3/uL (140-440); RBC 4.09 10*6/uL (4.10-5.20); RDW 17.2 % (11.5-14.5)
[2024-11-19 07:59] LABS: ALT 123 U/L (4-34); AST 289 U/L (14-36); African American GFR (CKD) 70 (>60 ml/min/1.73 sqM); Albumin 2.4 g/dL (3.5-5.0); Alkaline Phosphatase 1063 U/L (38-126); Anion Gap 6 mmol/L; Blood Urea Nitrogen 30 mg/dL (7-17); Calcium 8.7 mg/dL (8.4-10.2); Carbon Dioxide 28 mmol/L (22-30); Chloride 97 mmol/L (98-107); Glucose 92 mg/dL (74-99); Non-African American GFR(CKD) 61 (>60 ml/min/1.73 sqM); Sodium 131 mmol/L (137-145); Total Bilirubin 4.3 mg/dL (0.2-1.3); Total Protein 5.2 g/dL (6.3-8.2)
[2024-11-19] MEDS: PANTOPRAZOLE 40 MG TABLET PO STA (10:20)
--- NOTE | 2024-11-19 11:30 | P.PN ---
Subjective Progress Note Date: 11/19/24 Hospital Course: 69-year-old female with history of breast cancer 22 years ago. Coming in for worsening abdominal distention and difficulty breathing along with bilateral leg edema. She was admitted to the hospital and discharged about a week ago for similar problem she has been having progressive abdominal distention over the past 4 to 6 weeks which initially she thought maybe she gained weight or is bloated then was found to have significant amount of ascites where she was drained 1.5 L during last admission. She was also found to have metastatic lesions to the liver and bone however was not able to get a liver biopsy during her last hospital admission. She otherwise denies any fevers or chills denies any changes in bowel or urinary habits she does report dark urine, denies any abdominal pain, her reports occasional confusion which was thought to be secondary to pain meds the last time she took pain meds about 48 hours ago which since then she starts to have some improvement in her mental status. Patient denies any drug abuse alcohol or smoking. CT of the brain negative for any acute pathology Chest x-ray showed mild bilateral pleural effusion KUB x-ray showed nonspecific bowel gas pattern without radiologic evidience of acute process Subjective: Patient seen and examined at bedside. No acute events overnight. States Lasix had been working great for her. Pertinent positives and negatives as discussed above, a complete review of systems was performed and all other systems are negative. Vitals: Signs Reviewed Physical Exam: General: nontoxic, no distress, appears at stated age Derm: warm, dry, intact Head: atraumatic, normocephalic, symmetric Eyes: EOMI, icteric sclera Mouth: no lip lesion, mucus membranes moist Cardiovascular: S1 S2 reg, no murmur, rubs, or gallops, +1 bilateral peripheral leg edema Lungs: CTA bilateral, no rhonchi, no rales, no accessory muscle use Abdominal: Distended abdomen, non-tender to palpataion, no appreciable organomegaly Extremities: no gross muscle atrophy, no contractures Neuro: Alert, Oriented, CNII-XII grossly intact, gait normal Psych: well appearing, appropriate affect Data Received Today: Pertinent Labs: Sodium 131, potassium 4.0, BUN 30, creatinine 0.96, alk phos 1063, AST 289, ALT 123, total bili 4.3 Imaging: Gallbladder ultrasound: Numerous masses within the liver., Either multifocal HCC or metastatic disease, mild abdominal ascites fluid, 6 mm nonshadowing nodular focus within the gallbladder may represent tumefactive sludge Assessment and Plan: 69-year-old female with history of breast cancer 22 years ago coming in due to abdominal distention which i she required abdominal paracentesis about a week ago I discussed case with ED doctor and accepted the admission for recurrent ascites with respiratory distress with anticipated length of stay less than 2 midnights #. Recurrent significant ascites #. Suspected metastatic lesion to the liver and bone, unknown primary with history of breast cancer 22 years ago #. Liver cirrhosis CT of the brain negative for any acute pathology Denies any alcohol history Chest x-ray showed mild bilateral pleural effusion Diagnostic and therapeutic CT-guided paracentesis by IR today, had difficulty finding fluid pocket per ultrasound yesterday Avoid NSAIDs/pain medication, only topical pain medication as needed Pleural fluid studies ordered to determine to see if this is secondary to portal hypertension versus malignancy If SAAG score positive for portal hypertension consider adding Aldactone along with the Lasix she is currently on Gallbladder ultrasound ordered Oncology consult #. Hypervolemic hyponatremia secondary to suspected liver cirrhosis Switch IV Lasix to oral 40 twice daily Monitor urine output Monitor electrolytes Sodium level 130 on admission Resolved: MERVAT Hyperkalemia, hemolyzed DVT ppx: 5000 unit heparin SQ every 8 hours on hold prior to paracentesis Code status: Full code Anticipated discharge place: Pending clinical course Anticipated discharge time: Pending clinical course Timmy Kennedy MD PGY-1 IM Dictation was produced using [employer] dictation software. please excuse any grammatical, word or spelling errors. I have seen and evaluated the patient today. Discussed with the resident and agree with the residents finding and plan as documented in the resident's note. Changes highlighted in blue font. Patient failed observation status, will be switched to inpatient for further evaluation of hyponatremia, metastatic lesions to liver bone Objective - Vital Signs Vital signs: Vital Signs Temp 98.0 F 11/19/24 01:54 Pulse 82 11/19/24 01:54 Resp 16 11/19/24 01:54 BP 100/55 11/19/24 01:54 Pulse Ox 96 11/19/24 01:54 FiO2 Intake & Output 11/18/24 11/18/24 11/19/24 06:59 18:59 06:59 Weight 65.771 kg Other: Voiding Method Toilet # Voids 2 2 # Bowel Movements 0 - Labs CBC & Chem 7: 11/19/24 07:14 11/19/24 07:14 Labs: Abnormal Lab Results - Last 24 Hours (Table) 11/18/24 11/18/24 11/18/24 Range/Units 07:56 07:56 07:56 MCH 33.7 H (27.0-32.0) pg Immature Gran # 0.07 H (0.00-0.04) 10*3/uL Monocytes # 1.35 H (0.20-1.00) 10*3/uL Sodium 131 L (137-145) mmol/L Potassium 5.3 H (3.5-5.1) mmol/L BUN 36 H (7-17) mg/dL Total Bilirubin 4.9 H (0.2-1.3) mg/dL AST 309 H (14-36) U/L ALT 139 H (4-34) U/L Alkaline Phosphatase 1098 H (38-126) U/L Lactate Dehydrogenase 744 H (120-246) U/L Total Protein 6.1 L (6.3-8.2) g/dL Albumin 2.9 L (3.5-5.0) g/dL
[2024-11-19] MEDS: HYDROmorphone 0.5 MG/0.5 ML SYRINGE IVP STA (12:23)
[2024-11-19] MEDS: FUROSEMIDE 40 MG TAB PO SCH (17:03)
[2024-11-20 00:48] VITALS: RESP 16
--- NOTE | 2024-11-20 06:18 | US ---
EXAMINATION TYPE: US paracentesis abd w/image DATE OF EXAM: 11/19/2024 1:22 PM CLINICAL INDICATION:Female, 69 years old with history of See IR consult for order details; ascites an d distention. Pain. COMPARISON: Prior ultrasound November 08, 2024. Prior CT November 06, 2024 ATTENDING: Dr. Gallegos PROCEDURE: Informed consent was obtained. The risks of the procedure were extensively explained incl uding risk of damage to surrounding bowel with perforation and need for additional procedures. Proced ure was performed in the ultrasound procedure suite. Ultrasound imaging of the abdomen demonstrate as citic fluid. An appropriate access site was localized to the right lower abdomen. Timeout was taken p er protocol. The skin was prepped and draped in the usual sterile fashion and then locally anesthetized with 1% li docaine. The peritoneal cavity was then accessed via a 5-Hungarian one-step needle/catheter. Approxima tely 3100 cc of clear straw-colored fluid was obtained. Samples were sent to the lab for analysis. Patient tolerated procedure well without immediate complication. Hemostasis at the procedural site w as obtained with a sterile bandage placed. The patient was monitored in the holding area following th e procedure and was subsequently returned to floor in stable condition. IMPRESSION: Ultrasound guided diagnostic and therapeutic paracentesis, with approximately 3100 cc of clear straw- colored fluid drained. Pathology results pending. No immediate complications were evident. [facility], , 11/20/2024 6:15 AM
[2024-11-20] MEDS: PANTOPRAZOLE 40 MG TABLET PO SCH (06:21)
[2024-11-20 07:19] LABS: Basophils # (A) 0.06 10*3/uL (0.00-0.10); Basophils % (A) 0.9 %; Eosinophils # (A) 0.16 10*3/uL (0.04-0.35); Eosinophils % (A) 2.5 %; HCT 37.8 % (37.2-46.3); HGB 13.8 g/dL (12.0-15.0); Lymphocytes # (A) 1.27 10*3/uL (0.90-5.00); Lymphocytes % (A) 19.6 %; MCH 33.9 pg (27.0-32.0); MCHC 36.5 g/dL (32.0-37.0); MCV 92.9 fL (80.0-97.0); Mean Platelet Volume 9.7 fL (9.5-12.2); Monocytes # (A) 1.27 10*3/uL (0.20-1.00); Monocytes % (A) 19.6 %; Neutrophils # (A) 3.66 10*3/uL (1.80-7.70); Neutrophils % (A) 56.3 %; Platelet Count 277 10*3/uL (140-440); RBC 4.07 10*6/uL (4.10-5.20); RDW 16.8 % (11.5-14.5); WBC 6.49 10*3/uL (4.50-10.00)
[2024-11-20 07:34] LABS: ALT 122 U/L (4-34); AST 294 U/L (14-36); African American GFR (CKD) 70 (>60 ml/min/1.73 sqM); Albumin 2.4 g/dL (3.5-5.0); Alkaline Phosphatase 991 U/L (38-126); Anion Gap 7 mmol/L; Blood Urea Nitrogen 28 mg/dL (7-17); Calcium 8.1 mg/dL (8.4-10.2); Carbon Dioxide 28 mmol/L (22-30); Chloride 96 mmol/L (98-107); Glucose 100 mg/dL (74-99); Magnesium 1.8 mg/dL (1.6-2.3); Non-African American GFR(CKD) 61 (>60 ml/min/1.73 sqM); Potassium 3.8 mmol/L (3.5-5.1); Sodium 131 mmol/L (137-145); Total Bilirubin 4.3 mg/dL (0.2-1.3); Total Protein 5.1 g/dL (6.3-8.2)
[2024-11-20 08:33] VITALS: BP 120/69; PULSE 90; TEMP 98.6
[2024-11-20] MEDS: SPIRONOLACTONE 25 MG TAB PO STA (11:31)
--- NOTE | 2024-11-20 11:40 | P.DS ---
Providers Date of admission: 11/19/24 08:32 Discharge Diagnosis: Recurrent significant ascites Suspected metastatic lesion to the liver and bone, unknown primary with history of breast cancer 22 years ago Liver cirrhosis Hypervolemic hyponatremia secondary to suspected liver cirrhosis Hospital Course: Patient is a 69-year-old female with history of breast cancer 22 years ago. She is coming in for worsening abdominal distention and difficulty breathing along with bilateral leg edema. She was admitted to the hospital and discharged about a week ago for similar problem she has been having progressive abdominal distention over the past 4 to 6 weeks which initially she thought maybe she gained weight or is bloated then was found to have significant amount of ascites where she was drained 1.5 L during last admission. She was also found to have metastatic lesions to the liver and bone however was not able to get a liver biopsy during her last hospital admission. She otherwise denies any fevers or chills denies any changes in bowel or urinary habits she does report dark urine, denies any abdominal pain, her reports occasional confusion which was thought to be secondary to pain meds the last time she took pain meds about 48 hours ago which since then she starts to have some improvement in her mental status. Patient denies any drug abuse alcohol or smoking. CT of the brain negative for any acute pathology Chest x-ray showed mild bilateral pleural effusion KUB x-ray showed nonspecific bowel gas pattern without radiologic evidience of acute process Patient was admitted for further management of recurrent ascites with oncology on board. Patient received US guided diagnostic and therapeutic paracentesis which resulted with approximately 3100 cc of clear straw-colored fluid drained. Fluid was sent out for further lab workup and biopsy result. She will have PCP follow-up with results. Patient was discussed with oncology and they say they will set up weekly paracentesis for her. She is hemodynamically stable and cleared by oncology. She will be sent home with oral Lasix and Aldactone for her ascites. She will follow-up with PCP and oncology. She can be discharged home today. Patient seen and examined at bedside. Vital signs reviewed and stable. Physical examination: Vital signs reviewed General: nontoxic, no distress, appears at stated age Derm: warm, dry, intact Head: atraumatic, normocephalic, symmetric Eyes: EOMI, icteric sclera Mouth: no lip lesion, mucus membranes moist Cardiovascular: S1 S2 reg, no murmur, rubs, or gallops, no edema Lungs: CTA bilateral, no rhonchi, no rales, no accessory muscle use Abdominal: Distended abdomen, non-tender to palpataion, no appreciable organomegaly Extremities: no gross muscle atrophy, no contractures Neuro: Alert, Oriented, CNII-XII grossly intact, gait normal Psych: well appearing, appropriate affect A total of greater than 30 minutes of time were spent preparing this complex discharge summary. Patient was discharge on November 20, 2024 at 11:32 AM. Timmy Kennedy MD PGY-1 IM Dictation was produced using [employer] dictation software. please excuse any grammatical, word or spelling errors. I have seen and evaluated the patient today. Discussed with the resident and agree with the residents finding and plan as documented in the resident's note. Changes highlighted in blue font. Expected date of discharge: 11/20/24 Attending physician: Hira Lau MD Consults: 11/17/24 22:03 Consult Physician Routine Consulting Provider: Stefano Colon Consult Reason/Comments: oncological care Do you want consulting provider notified?: Yes Primary care physician: Deniz Shannon Plan - Discharge Summary Discharge Rx Participant: No New Discharge Prescriptions: New Furosemide [Lasix] 40 mg PO DAILY #30 tab Spironolactone [Aldactone] 100 mg PO DAILY #30 tab Continue Zolpidem [Ambien] 10 mg PO HS PRN PRN Reason: SLEEP Risedronate Sodium [Actonel] 35 mg PO FR Multivitamins, Thera [Multivitamin (formulary)] 1 tab PO W/LUNCH Glucosam/Phu-Msm1/C/Haider/Bosw [Glucosamine-Chondroitin Tablet] 1 tab PO W/LUNCH Calcium Carbonate/Vitamin D3 [Calcium 500-Vit D3 15 Mcg (600 Iu)] 1 tab PO W/LUNCH L.acidoph,Paracasei, B.lactis [Probiotic] 1 cap PO W/LUNCH Pantoprazole [Protonix] 40 mg PO DAILY Ondansetron [Zofran] 4 mg PO Q4H PRN PRN Reason: Nausea HYDROcodone/APAP 5-325MG [Pulteney 5-325] 1 tab PO Q4HR PRN PRN Reason: Pain Discharge Medication List Calcium Carbonate/Vitamin D3 [Calcium 500-Vit D3 15 Mcg (600 Iu)] 1 tab PO W/LUNCH 08/10/17 [History] Glucosam/Phu-Msm1/C/Haider/Bosw [Glucosamine-Chondroitin Tablet] 1 tab PO W/LUNCH 08/10/17 [History] Multivitamins, Thera [Multivitamin (formulary)] 1 tab PO W/LUNCH 08/10/17 [History] Risedronate Sodium [Actonel] 35 mg PO FR 08/10/17 [History] Zolpidem [Ambien] 10 mg PO HS PRN 08/10/17 [History] L.acidoph,Paracasei, B.lactis [Probiotic] 1 cap PO W/LUNCH 11/06/24 [History] HYDROcodone/APAP 5-325MG [Pulteney 5-325] 1 tab PO Q4HR PRN 11/18/24 [History] Ondansetron [Zofran] 4 mg PO Q4H PRN 11/18/24 [History] Pantoprazole [Protonix] 40 mg PO DAILY 11/18/24 [History] Furosemide [Lasix] 40 mg PO DAILY #30 tab 11/20/24 [Rx] Spironolactone [Aldactone] 100 mg PO DAILY #30 tab 11/20/24 [Rx] Follow up Appointment(s)/Referral(s): Luis F Shannon MD [Primary Care Provider] - 1-2 days Moiz Rivera MD [STAFF PHYSICIAN] - 1 Week Patient Instructions/Handouts: Cirrhosis (DC) Activity/Diet/Wound Care/Special Instructions: Please follow up with PCP and oncology. Discharge Disposition: HOME SELF-CARE
[2024-11-20 13:37] LABS: Appearance,BF Cloudy
[2024-11-20 13:39] LABS: RBC, Body Fluid 400 /uL
[2024-11-20 13:42] LABS: Mononuclear WBC,Body Fluid 80 %; Polynuclear WBC,Body Fluid 20 %; Total Cells Counted,Body Fluid 50
[2024-11-20 13:44] LABS: Nucleated Cells, Body Fluid 360 /uL
--- NOTE | 2024-11-20 13:47 | CT ---
EXAMINATION TYPE: CT biopsy liver DATE OF EXAM: 11/19/2024 1:10 PM CLINICAL INDICATION:Female, 69 years old with history of See IR consult for order details.; Abnormal CT. Multiple hepatic masses and ascites. COMPARISON: Prior CT abdomen and pelvis November 06, 2024 CT DLP: 906 mGycm, Automated exposure control for dose reduction was used. Contrast used: mL of , none Oral contrast used: none ATTENDING: Dr. Gallegos TECHNIQUE: CT guided percutaneous biopsy of right hepatic lobe at site of several masses using coaxial method. The patient was monitored by a qualified trained nurse independent of the Radiologist. FINDINGS: The procedure was explained to the patient including risks of bleeding, pneumothorax, bruising, infec tion, damage to nearby organs and need for additional therapy including potential surgery. All quest ions were answered and consent was obtained. The previous studies were reviewed. The patient was placed on the CT couch in the supine position. The overlying skin was marked and prepped using sterile method. Timeout was taken per protocol. Overl jc skin is cleansed with Betadine. Following administration of local anesthesia a 17 gauge coaxial needle was introduced in the right lateral abdomen. The coaxial needle tip was directed into the rig ht hepatic lobe with CT guidance. Multiple 18 gauge coaxial biopsies were then obtained. The biops y samples were sent in appropriate containers for lab analysis. Following the procedure the needle was removed and sterile dressing was applied to the percutaneous site. Post biopsy imaging demonstr ated no evidence of significant new bleed. Patient was returned to the floor in stable condition. IMPRESSIONS: Status post percutaneous mass biopsy of right hepatic lobe, multiple hepatic masses as described rupali oreilly. Pathology results pending. [facility], , 11/20/2024 1:45 PM
--- NOTE | 2024-11-20 17:29 | P.PN ---
Subjective Progress Note Date: 11/20/24 S/P paracentesis With 3.1 L removed. Liver biopsy was also obtained. Patient is reporting improvement in abdominal distention and discomfort. Objective - Vital Signs Vital signs: Vital Signs Temp 98.6 F 11/20/24 08:00 Pulse 90 11/20/24 08:00 Resp 16 11/20/24 08:00 BP 120/69 11/20/24 08:00 Pulse Ox 96 11/20/24 08:00 FiO2 Intake & Output 11/19/24 11/20/24 11/20/24 18:59 06:59 18:59 Other: Voiding Method Toilet Toilet # Voids 2 2 # Bowel Movements 0 - Constitutional General appearance: Present: average body habitus, no acute distress - EENT ENT: Present: hearing grossly normal - Gastrointestinal General gastrointestinal: Present: distended. Absent: tenderness - Integumentary Integumentary: Present: jaundiced. Absent: cyanotic - Musculoskeletal Musculoskeletal: Present: generalized weakness - Psychiatric Psychiatric: Present: A&O x's 3 - Labs CBC & Chem 7: 11/20/24 06:49 11/20/24 06:49 Labs: Abnormal Lab Results - Last 24 Hours (Table) 11/20/24 11/20/24 Range/Units 06:49 06:49 RBC 4.07 L (4.10-5.20) 10*6/uL MCH 33.9 H (27.0-32.0) pg Immature Gran # 0.07 H (0.00-0.04) 10*3/uL Monocytes # 1.27 H (0.20-1.00) 10*3/uL Sodium 131 L (137-145) mmol/L Chloride 96 L (98-107) mmol/L BUN 28 H (7-17) mg/dL Glucose 100 H (74-99) mg/dL Calcium 8.1 L (8.4-10.2) mg/dL Total Bilirubin 4.3 H (0.2-1.3) mg/dL AST 294 H (14-36) U/L ALT 122 H (4-34) U/L Alkaline Phosphatase 991 H (38-126) U/L Total Protein 5.1 L (6.3-8.2) g/dL Albumin 2.4 L (3.5-5.0) g/dL Assessment and Plan (1) Ascites Status: Acute Code(s): R18.8 - OTHER ASCITES SNOMED Code(s): 264829068 (2) Bone lesion Status: Acute Priority: High Code(s): M89.9 - DISORDER OF BONE, UNSPECIFIED SNOMED Code(s): 788091884 (3) Liver lesion Status: Acute Priority: High Code(s): K76.9 - LIVER DISEASE, UNSPECIFIED SNOMED Code(s): 115679141 Plan: Liver and bone lesions, hyperbilirubinemia/transaminitis, recurrent ascites: - History and patient presentation as documented in HPI. History of breast cancer in 2002, treated at [facility] - Paracentesis was attempted but not successful. Plan was for liver biopsy, but upon further review, patient underwent paracentesis on 11/08/24 with 1.5L removed and liver biopsy was not obtained at that time. Cytology was negative for malignancy. -CA 15-3 elevated at >3,000. CEA 1706 -Bilirubin elevated at 5.7 with transaminitis noted. Amylase 74, lipase 544. -Repeat paracentesis ordered, cytology requested. Liver biopsy also ordered. S/p para with 3.1 L removed, liver biopsy also obtained, cytology and biopsy pending -Concern for recurrence of breast cancer. Further treatment recs, pending workup -Will request [facility] regarding her breast cancer -Clinic f/u scheduled with Dr. Jasson Rivera on 11/27/24 Free standing order placed for outpt paracentesis. Zofran and oxycodone sent from clinic Discussed case with admitting team. Pt cleared from hem/onc standpoint for discharge once by admitting team or other consulted specialities
[2024-11-20 20:29] LABS: LDH, Body Fluid Source Ascites; T. Protein, Body Fluid Source Ascites; Total Protein, Body Fluid 1200 mg/dL
[2024-11-20 21:03] LABS: Albumin, Fluid Source Other
[2024-11-21] MEDS ORDERED: FUROSEMIDE 40 MG TAB PO SCH (09:00)
[2024-11-21] MEDS ORDERED: SPIRONOLACTONE 25 MG TAB PO SCH (09:00)
--- NOTE | 2024-11-21 12:34 | CDI ---
Documentation Clarification Form Date: 11/21/2024 12:10:09 PM From: Jess Celestin Admit Date: 11/19/2024 08:32:00 AM Patient Name: Lakshmi Rosenthal Visit Number: [id number] Discharge Date: 11/20/2024 12:35:00 PM ATTENTION: The Clinical Documentation Specialists (CDI) and [facility] Coding Staff appreciate your assistance in clarifying documentation. Please respond to the clarification below the line at the bottom and electronically sign. The CDI & [facility] Coding staff will review the response and follow-up if needed. Please note: Queries are made part of the Legal Health Record. If you have any questions, please contact the author of this message via ITS. Doctor/Provider: Hira Lau Your patient has the documented symptom of Confusion in the History and Physical 11/17/24. Additional clarification regarding the etiology/cause of this symptom is requested. History/Risk Factors: patient is a 69 year old female. She has a history of breast cancer 22 years ago. Recently underwent paracentesis due to ascites, and was found to have possible metastatic lesions to the liver and bone. Clinical Indicators: per the patients , she has been having occasional confusion which was thought to be due to pain medication. Reports the last time she took pain meds was about 48 hours prior to presenting to the hospital, and since then has started to see some improvement in her mental status. During admission patient was found to have significant ascites, liver cirrhosis, possible metastatic lesions to the liver and bone with history of breast cancer. Patient underwent paracentesis- diagnostic and therapeutic, and also had a biopsy of the liver. The ED note states patient is having some intermittent confusion. She was also noted to have elevated liver enzymes, bilirubin, sodium, and potassium, MERVAT, and acidosis. Labs: sodium 130, BUN 42, Creat 1.23, total Bili 5.7, AST 344, ALT 156, alkaline phos 1078, ammonia 55, lactate 744, Chest x-ray showed mild bilateral pleural effusion KUB x-ray- nonspecific bowel gas pattern without radiologic evidence of acute process CT: no acute intracranial process Treatment: underwent US guided diagnostic and therapeutic paracentesis with 3100cc of clear straw colored fluid drained. Biopsy of the liver. Symptomatic control, supplemental oxygen, oncology consult, IV Lasix, monitor urine and electrolytes. Please clarify the etiology of the symptom of Confusion: [ ] Toxic Encephalopathy due to pain medication [ ] Hepatic Encephalopathy [ ] Confusion (specify cause): [ ] Not clinically significant [ ] Other condition (please specify) [ ] Unable to determine [ ] Not clinically significant MTDD
== END 2024-11-20 12:35 | disposition home or self-care (01) | DRG 436 ==
LOC: EC 17:42 → 1SOBS 22:04 → OBSVTOIN 11-19 08:32
PROVIDERS: ADMIT Internal Medicine; ATTEND Internal Medicine
PROC: 0FB13ZX Excision of Right Lobe Liver, Percutaneous Approach, Diagnostic (ICD-10-PCS; principal; 2024-11-19)
PROC: 0W9G3ZZ Drainage of Peritoneal Cavity, Percutaneous Approach (ICD-10-PCS; principal; 2024-11-19)
DX: C78.7 Secondary malignant neoplasm of liver and intrahepatic bile duct (principal); C79.51 Secondary malignant neoplasm of bone; J90 Pleural effusion, not elsewhere classified; E87.20 Acidosis, unspecified; E87.1 Hypo-osmolality and hyponatremia; D75.89 Other specified diseases of blood and blood-forming organs; C80.1 Malignant (primary) neoplasm, unspecified; K74.60 Unspecified cirrhosis of liver; R18.8 Other ascites; N17.9 Acute kidney failure, unspecified; E80.6 Other disorders of bilirubin metabolism; E87.5 Hyperkalemia; G47.00 Insomnia, unspecified; Z92.21 Personal history of antineoplastic chemotherapy; F41.9 Anxiety disorder, unspecified; R06.03 Acute respiratory distress; R74.01 Elevation of levels of liver transaminase levels; E87.70 Fluid overload, unspecified; Z79.899 Other long term (current) drug therapy; Z85.3 Personal history of malignant neoplasm of breast; Z87.891 Personal history of nicotine dependence
CPT/HCPCS: 36415; 47000; 49083; 70450; 71046; 74018; 76705; 77012; 80053; 81003; 82042; 82140; 82150; 83615; 83690; 83735; 84157; 85025; 85610; 85730; 87070; 87205; 87636; 88108; 88305; 88307; 88341; 88342; 89050; 96374; 96375; 96376; 99285

== ENCOUNTER 2024-12-03 13:38 | Day surgery (SDC) | payer MEDICARE, BC ==
[~2024-12-03 13:38] MED LIST changes: -ACETAMINOPHEN IV (For NPO) 100 ML IVPB ONE; -DEXAMETHASONE SOD PHOSPHATE 10 MG/ML 1 ML VIAL IV ONE; +HYDROmorphone 0.5 MG/0.5 ML SYRINGE IVP PRN; +LIDOCAINE 1% (10MG/ML) FOR IV START INTRADERMA PRN; -ONDANSETRON 4 MG/2 ML VIAL IVP ONE; +Pre Op ABX Message 1 EACH MISC MISCELLANE ONE; -ceFAZolin IN SWFI 2 GM/20 ML SYRINGE IVP ONE
[2024-12-03] MEDS: IV FLUID CONTINUATION 1,000 ML IV ONE (14:07)
[2024-12-03 14:12] VITALS: TEMP 96.5
[2024-12-03] MEDS: LACTATED RINGERS 1,000 ML IV SCH (14:19)
[2024-12-03] MEDS: ONDANSETRON 4 MG/2 ML VIAL IVP STA (14:19)
[2024-12-03] MEDS: DEXAMETHASONE SOD PHOSPHATE 4 MG/ML 1 ML VIAL IVP STA (14:20)
[2024-12-03 14:37] LABS: African American GFR (CKD) 24 (>60 ml/min/1.73 sqM); Anion Gap 12 mmol/L; Blood Urea Nitrogen 73 mg/dL (7-17); Calcium 9.4 mg/dL (8.4-10.2); Carbon Dioxide 26 mmol/L (22-30); Chloride 92 mmol/L (98-107); Glucose 88 mg/dL (74-99); Non-African American GFR(CKD) 21 (>60 ml/min/1.73 sqM); Sodium 130 mmol/L (137-145)
[2024-12-03 14:41] LABS: Potassium 4.8 mmol/L (3.5-5.1)
[2024-12-03] MEDS ORDERED: fentaNYL (PF) 50 MCG/ML 2 ML AMP ONE (14:57)
[2024-12-03] MEDS ORDERED: MIDAZOLAM 2 MG/2 ML VIAL ONE (14:57)
[2024-12-03] MEDS ORDERED: PHENYLEPHRINE-0.9% NACL SYG 1,000 MCG/10 ML SYRINGE ONE (14:57)
[2024-12-03] MEDS ORDERED: PROPOFOL 10 MG/ML 20 ML VIAL IV ONE (14:57)
[2024-12-03] MEDS: SODIUM CHLORIDE 0.9% 50 ML with ceFAZolin 2 GM IV ONE (15:01)
[2024-12-03] MEDS: LIDOCAINE (PF) 10 MG/ML 2 ML VIAL SQ ONE (15:01)
[2024-12-03] MEDS: HEPARIN SODIUM,PORCINE 100 UNIT/ML 5 ML VIAL IV ONE (15:28)
[2024-12-03 15:54] VITALS: RESP 16
--- NOTE | 2024-12-03 16:12 | FL ---
EXAMINATION TYPE: FL guided central line placemt DATE OF EXAM: 12/03/2024 FLUOROSCOPY Right-sided Port-a-cath. 17 secs FL. 0.7711 DAP. 1 image is submitted. [facility], , 12/03/2024 4:10 PM
[2024-12-03 16:14] VITALS: PULSE 80
[2024-12-03 16:26] VITALS: BP 96/59
--- NOTE | 2024-12-03 21:19 | P.OP ---
Date of Procedure: 12/03/24 Preoperative Diagnosis: breast cancer Postoperative Diagnosis: breast cancer Procedure(s) Performed: mediport insertion Implants: mediport Anesthesia: local Surgeon: Ronnell Tao Estimated Blood Loss (ml): 9 Pathology: none sent Condition: stable Disposition: PACU Indications for Procedure: breast cancer Operative Findings: none Description of Procedure: The patient was brought to the operative suite where he was cleaned and draped in sterile fashion. A timeout was performed and everyone agreed with the information recited. Next local anesthetic was used anesthetize the puncture site and clavicle. An introducer needle was then used to gain access tot he subclavian and a guide wire was used to access the svc confirmed by fluoro. A pocket was made using a 15 blade and electrocautery Next, a tunneled catheter was then used to tunnel underneath the subcutaneous tissue. A dilator sheath combo was used to dilate the tract under fluoro. The guidewire was removed. The catheter was then used to feed into the dilator sheath combo and put in place with fluoro guidance. The protective sheath was then removed. The catheter was cut to length and portacath was secured to this using a locking mechanism. The de la o needle was then used to aspirate blood and flush without difficulty.The skin was closed using 4-0 vicryl suture in a running fashion. Skin glue was used to close puncture site.
== END 2024-12-03 16:40 | disposition home or self-care (01) ==
LOC: OR 13:38
PROVIDERS: ATTEND Surgery
DX: C50.919 Malignant neoplasm of unspecified site of unspecified female breast (principal)
CPT/HCPCS: 80048; 77001; 36561; C1788; J2250; J2003; J1642; J1100; J0690; J2405; J3010; J2704; J2371